=== PATIENT | female | born 1965 | race Caucasian/White ===

== ENCOUNTER 2020-03-24 08:41 | Outpatient (REF) | payer OTHER, SELFPAY ==
--- NOTE | 2020-03-24 | CT_ITS ---
EXAMINATION: CT CHEST WITH CONTRAST CLINICAL INFORMATION: Severe] Covid-19 infection. Persistent dyspnea. COMPARISON: None TECHNIQUE: Multidetector volumetric CT imaging of the chest was obtained after the administration of 50 mL of Omnipaque 350 intravenous contrast without immediate adverse reactions. Axial MIP volume rendering provided. Sagittal and coronal reformatted images were obtained. This CT examination was performed using dose optimization techniques as appropriate, variously including the following: *Automated exposure control *Adjustment of mA and/or kV according to patient size (this includes techniques or standardized protocols for targeted exams where dose is matched to indication/reason for exam; i.e. extremities or head) *Use of iterative reconstruction technique DLP: 97 mGy-cm FINDINGS: BUSINESS DIRECTOR: Unremarkable. LUNGS: The lungs are well-expanded and clear of acute pneumonic process. There are no pulmonary nodules, mass or consolidation. Minimal focal subpleural linear density likely atelectasis right lung base. MEDIASTINUM: The thyroid lobes are symmetric and normal. The central trachea and bronchi are widely patent. No abnormal size mediastinal or hilar lymph nodes seen. There is no pericardial effusion. Heart size and the great vessels are normal caliber. PLEURA: There is no pleural effusion. No pleural mass or thickening. AXILLA: No lymphadenopathy. UPPER ABDOMEN: The liver is diffusely attenuated but otherwise normal size, shape and position. No focal lesion visualized. There is no intrahepatic ductal dilatation. The gallbladder is not seen. Visualized part of the pancreas and bilateral adrenal glands are unremarkable. OSSEOUS STRUCTURES: No lytic or sclerotic process seen. IMPRESSION: 1. No acute pulmonary process seen. 2. Minimal focal atelectatic changes right lung base.
[2020-03-24] MEDS: iohexoL 350 MG/ML 100 ML INFUS..BTL IV (10:18)
== END 2020-03-24 08:42 | disposition home or self-care (01) ==
LOC: HO.CT 08:41
PROVIDERS: PCP Internal Medicine; Visit Provider Internal Medicine
DX: R06.00 Dyspnea, unspecified (principal); R53.83 Other fatigue; Z86.19 Personal history of other infectious and parasitic diseases
CPT/HCPCS: 71260

== ENCOUNTER → 2020-04-05 08:42 | Outpatient (BNVA) | payer OTHER, SELFPAY | PROVIDERS: Visit Provider Physician Assistant | DX: Z76.89 Persons encountering health services in other specified circumstances (principal) ==

== ENCOUNTER 2020-04-06 10:34 | Outpatient (REF) | payer OTHER, SELFPAY ==
[2020-04-06 12:17] LABS: Estimated Average Glucose 146 mg/dL; Hemoglobin A1c % 6.7 %
[2020-04-06 12:39] LABS: Alanine Aminotransferase 154 U/L (0-31); Albumin Level 4.5 g/dL (3.5-5.0); Alkaline Phosphatase 81 U/L (39-117); Anion Gap 13 (12-20); Aspartate Amino Transferase 84 U/L (5-31); Bilirubin Total 0.9 mg/dL (0.0-1.0); Blood Urea Nitrogen 13 mg/dL (9-16); Calcium 9.2 mg/dL (8.4-10.2); Carbon Dioxide 27 mmol/L (22-29); Chloride 104 mmol/L (96-108); Cholesterol 300 mg/dL; Estimated Glomerular Filt Rate > 60; Glucose Random 110 mg/dL (60-115); HDL Cholesterol 41 mg/dL; LDL Cholesterol Calculated 202 mg/dl; Sodium 140 mmol/L (135-145); Total Protein 7.9 g/dL (6.5-8.0); Triglycerides 285 mg/dL
[2020-04-07 08:42] LABS: HBS Num1 5.09 mIU/mL (0-7.99); HBc Num1 0.07 S/CO (0.00-0.79); HBsAGNum1 0.18 S/CO (0.00-0.99); Hepatitis B Core Antibody Nonreactive (Nonreactive); Hepatitis B Surface Antigen Negative (Negative); ~Hepatitis B Surface Antibody NONREACTIVE (Nonreactive)
[2020-04-07 09:02] LABS: ~HepC Num1 0.12 S/CO (0.00-0.79); ~Hepatitis C Antibody Nonreactive (Nonreactive)
[2020-04-08 13:57] LABS: Alpha 1 Anti-trypsin 109 mg/dL (83-199)
[2020-04-10 16:57] LABS: Mitochondrial Antibodies NEGATIVE (NEGATIVE)
[2020-04-10 18:07] LABS: Anti Nuclear Antibody Screen POSITIVE (NEGATIVE)
[2020-04-11 05:02] LABS: Hepatitis A Antibody IgM 0.19 Index (0-0.79); ~Hepatitis A Antibody IgM Nonreactive (Nonreactive)
[2020-04-11 18:17] LABS: Smooth Muscle Antibody <20 U (<20)
== END 2020-04-06 10:35 | disposition home or self-care (01) ==
LOC: HO.LAB 10:34
PROVIDERS: PCP Internal Medicine; Visit Provider Physician Assistant
DX: R74.8 Abnormal levels of other serum enzymes (principal)
CPT/HCPCS: 36415; 80053; 80061; 82103; 83036; 86038; 86039; 86255; 86256; 86704; 86706; 86709; 86803; 87340

== ENCOUNTER → 2020-04-13 10:16 | Outpatient (BNVA) | payer OTHER, SELFPAY | PROVIDERS: PCP Internal Medicine; Visit Provider Physician Assistant | DX: Z13.89 Encounter for screening for other disorder (principal) ==

== ENCOUNTER 2020-05-03 10:43 | Outpatient (REF) | payer OTHER, SELFPAY ==
[2020-05-03 12:22] LABS: Alanine Aminotransferase 153 U/L (0-31); Albumin Level 4.4 g/dL (3.5-5.0); Alkaline Phosphatase 90 U/L (39-117); Anion Gap 12 (12-20); Aspartate Amino Transferase 68 U/L (5-31); Bilirubin Total 0.6 mg/dL (0.0-1.0); Blood Urea Nitrogen 13 mg/dL (9-16); Calcium 9.1 mg/dL (8.4-10.2); Carbon Dioxide 27 mmol/L (22-29); Chloride 103 mmol/L (96-108); Estimated Glomerular Filt Rate > 60; Glucose Random 107 mg/dL (60-115); Potassium 4.2 mmol/l (3.3-5.1); Sodium 138 mmol/L (135-145); Total Protein 7.7 g/dL (6.5-8.0)
== END 2020-05-03 10:44 | disposition home or self-care (01) ==
LOC: HO.LAB 10:43
PROVIDERS: PCP Internal Medicine; Visit Provider Physician Assistant
DX: R10.11 Right upper quadrant pain (principal)
CPT/HCPCS: 80053

== ENCOUNTER → 2020-05-11 08:13 | Outpatient (BNVA) | payer OTHER, SELFPAY | PROVIDERS: PCP Internal Medicine; Referring Provider Internal Medicine; Visit Provider Physician Assistant | DX: Z76.89 Persons encountering health services in other specified circumstances (principal) ==

== ENCOUNTER 2020-05-12 08:00 | Outpatient (REF) | payer OTHER, SELFPAY | END 2020-05-12 08:01 | disposition home or self-care (01) | LOC: HO.LAB 08:00 | PROVIDERS: Physician Assistant; Visit Provider Internal Medicine | DX: A04.8 Other specified bacterial intestinal infections (principal) | CPT/HCPCS: 87338 ==

== ENCOUNTER → 2020-05-17 08:21 | Outpatient (BNVA) | payer OTHER, SELFPAY | PROVIDERS: Visit Provider Physician Assistant | DX: Z76.89 Persons encountering health services in other specified circumstances (principal) ==

== ENCOUNTER → 2020-06-06 08:14 | Outpatient (BNVA) | payer OTHER, SELFPAY | PROVIDERS: Visit Provider Nurse Practitioner Family | DX: Z76.89 Persons encountering health services in other specified circumstances (principal) ==

== ENCOUNTER 2020-06-09 12:11 | Outpatient (REF) | payer OTHER, SELFPAY ==
--- NOTE | 2020-06-09 | PFT_ITS ---
FLOWS: FEV1 of 87% of predicted at 1.95 L. FVC 80% of predicted at 2.30 L. FEV1 to FVC ratio of 0.85. No bronchodilator response. LUNG VOLUMES: Total lung capacity 109% of predicted at 4.72 L. Residual volume 134% of predicted at 2.21 L. Slow vital capacity 94% of predicted at 2.51 L. Expiratory reserve volume 29% of predicted at 0.22 L. Diffusion capacity is normal. IMPRESSION: No obstructive or restrictive ventilatory defect. Increased residual volume suggests air trapping. David Patel MD AP/MODL / [id number]
== END 2020-06-09 12:12 | disposition home or self-care (01) ==
LOC: HO.RESP 12:11
PROVIDERS: PCP Internal Medicine; Visit Provider Nurse Practitioner Primary Care
DX: R06.02 Shortness of breath (principal)
CPT/HCPCS: 94060; 94727; 94729

== ENCOUNTER → 2020-06-13 10:14 | Outpatient (BNVA) | payer OTHER, SELFPAY | PROVIDERS: PCP Internal Medicine; Visit Provider Nurse Practitioner Family | DX: Z76.89 Persons encountering health services in other specified circumstances (principal) ==

== ENCOUNTER → 2020-06-21 13:00 | Outpatient (REF) | payer OTHER, SELFPAY | LOC: HO.SL 13:00 | PROVIDERS: PCP Internal Medicine; Visit Provider Nurse Practitioner Family | DX: G47.33 Obstructive sleep apnea (adult) (pediatric) (principal); G47.19 Other hypersomnia; G47.9 Sleep disorder, unspecified; R06.83 Snoring | CPT/HCPCS: 95806 ==

== ENCOUNTER → 2020-07-03 15:55 | Outpatient (BNVA) | payer OTHER, SELFPAY | PROVIDERS: PCP Internal Medicine; Visit Provider Internal Medicine Gastroenterology | DX: Z76.89 Persons encountering health services in other specified circumstances (principal) ==

== ENCOUNTER 2020-07-05 10:47 | Outpatient (REF) | payer OTHER, SELFPAY ==
[2020-07-05 12:19] LABS: MANUAL DIFF FLAG NO
[2020-07-05 12:27] LABS: Basophils Percent Auto 0.4 % (0-2); Eosinophils Absolute Auto 0.2 X10*3/uL (0.0-0.4); Eosinophils Percent Auto 2.2 % (0-4); Hematocrit 44.4 % (37-47); Hemoglobin 14.6 g/dl (12.0-16.0); Imm Gran Abs Auto 0.03 X10*3/uL (0.00-0.03); Imm Gran Pct Auto 0.4 % (0.0-0.4); Lymphocytes Absolute Auto 2.9 X10*3/uL (1.2-4.9); Lymphocytes Percent Auto 37.8 % (20-40); Mean Corpuscular HGB Conc 32.9 g/dl (31.0-35.0); Mean Corpuscular Hemoglobin 29.3 pg (27.0-33.0); Mean Corpuscular Volume 89.2 fL (80-98); Mean Platelet Volume 9.1 fL (9.4-12.3); Monocytes Absolute Auto 0.5 X10*3/uL (0.1-1.2); Monocytes Percent Auto 6.2 % (2-11); Neutrophils Absolute Auto 4.1 X10*3/uL (2.0-8.3); Platelet Count 325 X10*3/uL (160-400); Red Blood Count 4.98 X10*6/uL (4.20-5.50); Red Cell Distribution Width 12.2 % (11.0-16.0); White Blood Count 7.6 X10*3/uL (4.8-10.8)
[2020-07-05 13:31] LABS: TSH reflex Free T4 0.83 mIU/mL (0.32-4.0)
[2020-07-05 13:34] LABS: Alanine Aminotransferase 125 U/L (0-31); Albumin Level 4.4 g/dL (3.5-5.0); Alkaline Phosphatase 105 U/L (39-117); Anion Gap 14 (12-20); Aspartate Amino Transferase 73 U/L (5-31); Bilirubin Total 0.7 mg/dL (0.0-1.0); Blood Urea Nitrogen 14 mg/dL (9-16); Calcium 9.2 mg/dL (8.4-10.2); Carbon Dioxide 27 mmol/L (22-29); Chloride 103 mmol/L (96-108); Estimated Glomerular Filt Rate > 60; Glucose Random 112 mg/dL (60-115); Sodium 140 mmol/L (135-145); Total Protein 8.1 g/dL (6.5-8.0)
[2020-07-05 14:04] LABS: Gamma Glutamyl Transpeptidase 295 U/L (7-33)
[2020-07-06 12:37] LABS: Myeloperoxidase Antibody <1.0 AI; Proteinase 3 PR3 Antibodies <1.0 AI; Transglutaminase IgA 1 U/mL
[2020-07-06 14:12] LABS: Ceruloplasmin 32 mg/dL (18-53); Immunoglobulin G 1821 mg/dL (600-1640)
[2020-07-14 06:17] LABS: Aldolase 13.6 U/L (<=8.1)
== END 2020-07-05 10:48 | disposition home or self-care (01) ==
LOC: HO.LAB 10:47
PROVIDERS: PCP Internal Medicine; Visit Provider Internal Medicine Gastroenterology
DX: R74.8 Abnormal levels of other serum enzymes (principal)
CPT/HCPCS: 36415; 80053; 82085; 82390; 82550; 82784; 82977; 83516; 84443; 85025; 86021

== ENCOUNTER → 2020-09-11 13:23 | Outpatient (BNVA) | payer OTHER, SELFPAY | PROVIDERS: PCP Internal Medicine; Visit Provider Internal Medicine | DX: R06.00 Dyspnea, unspecified (principal); G47.9 Sleep disorder, unspecified; B94.8 Sequelae of other specified infectious and parasitic diseases; Z79.51 Long term (current) use of inhaled steroids | CPT/HCPCS: 99202 ==

== ENCOUNTER → 2020-09-12 09:45 | Outpatient (BNVA) | payer OTHER, SELFPAY | PROVIDERS: Visit Provider Nurse Practitioner Family ==

== ENCOUNTER 2020-09-19 08:25 | Outpatient (REF) | payer OTHER, SELFPAY ==
[2020-09-19 09:52] LABS: MANUAL DIFF FLAG NO
[2020-09-19 09:55] LABS: Basophils Percent Auto 0.6 % (0-2); Eosinophils Absolute Auto 0.1 X10*3/uL (0.0-0.4); Eosinophils Percent Auto 1.1 % (0-4); Hematocrit 45.3 % (37-47); Hemoglobin 14.7 g/dl (12.0-16.0); Imm Gran Abs Auto 0.02 X10*3/uL (0.00-0.03); Imm Gran Pct Auto 0.3 % (0.0-0.4); Lymphocytes Absolute Auto 2.8 X10*3/uL (1.2-4.9); Lymphocytes Percent Auto 40.5 % (20-40); Mean Corpuscular HGB Conc 32.5 g/dl (31.0-35.0); Mean Corpuscular Hemoglobin 29.3 pg (27.0-33.0); Mean Corpuscular Volume 90.2 fL (80-98); Mean Platelet Volume 8.8 fL (9.4-12.3); Monocytes Absolute Auto 0.4 X10*3/uL (0.1-1.2); Monocytes Percent Auto 5.2 % (2-11); Neutrophils Absolute Auto 3.7 X10*3/uL (2.0-8.3); Neutrophils Percent Auto 52.3 % (45-73); Platelet Count 285 X10*3/uL (160-400); Red Blood Count 5.02 X10*6/uL (4.20-5.50); Red Cell Distribution Width 12.8 % (11.0-16.0)
[2020-09-19 10:05] LABS: Prothrombin Time 11.8 SEC (10.8-13.0)
[2020-09-19 10:39] LABS: Alanine Aminotransferase 162 U/L (0-31); Albumin Level 4.5 g/dL (3.5-5.0); Alkaline Phosphatase 98 U/L (39-117); Anion Gap 14 (12-20); Aspartate Amino Transferase 95 U/L (5-31); Bilirubin Total 0.9 mg/dL (0.0-1.0); Blood Urea Nitrogen 16 mg/dL (9-16); Calcium 9.5 mg/dL (8.4-10.2); Carbon Dioxide 27 mmol/L (22-29); Chloride 103 mmol/L (96-108); Estimated Glomerular Filt Rate > 60; Gamma Glutamyl Transpeptidase 220 U/L (7-33); Glucose Random 139 mg/dL (60-115); Sodium 140 mmol/L (135-145); Total Protein 8.3 g/dL (6.5-8.0)
[2020-09-20 15:27] LABS: H Pylori Breath Test NOT DETECTED (NOT DETECTED)
[2020-09-21 13:53] LABS: Immunoglobulin G 1680 mg/dL (600-1640)
[2020-09-22 07:02] LABS: Aldolase 12.9 U/L (<=8.1)
== END 2020-09-19 08:26 | disposition home or self-care (01) ==
LOC: HO.LAB 08:25
PROVIDERS: PCP Internal Medicine; Visit Provider Internal Medicine Gastroenterology
DX: K52.839 Microscopic colitis, unspecified (principal); A04.8 Other specified bacterial intestinal infections; R94.5 Abnormal results of liver function studies
CPT/HCPCS: 36415; 80053; 82085; 82784; 82977; 83013; 85025; 85610; 99212

== ENCOUNTER 2020-11-01 13:28 | Outpatient (REF) | payer OTHER, SELFPAY ==
--- NOTE | ~2020-11-01 | MR_ITS ---
EXAMINATION: MR ABDOMEN WITHOUT AND WITH CONTRAST CLINICAL INFORMATION: Abnormal liver function tests. COMPARISON: Previous abdominal ultrasound February [address] March 2020. TECHNIQUE: MR abdomen was performed without and with use of 5.5 mL intravenous Gadavist contrast. Postcontrast images are performed in multiphase dynamic sequences. Imaging was performed in 3 planes. FINDINGS: LUNG BASES: The visualized lung bases are unremarkable. LIVER, GALLBLADDER, AND BILIARY TREE: The liver is normal in size and contour. There is signal loss in the liver on [id number] sequences suggestive of significant fatty infiltration. No focal hepatic lesion or biliary ductal dilatation is present. The gallbladder is unremarkable with no evidence of gallbladder wall thickening, or obvious pericholecystic inflammatory changes. PANCREAS: Unremarkable. SPLEEN: Normal. ADRENAL GLANDS: Normal. KIDNEYS AND URETERS: The kidneys are normal in size, shape, and enhance symmetrically. No hydronephrosis. No renal mass. There is a small left renal cyst. GASTROINTESTINAL TRACT: No bowel obstruction. No ascites or fluid collection. ABDOMINAL WALL: No significant hernia is appreciated. LYMPH NODES: No lymphadenopathy. There is no ascites. VASCULAR: Unremarkable. OSSEOUS STRUCTURES: Marrow signal normal. MR/MR abdomen wo/w con IMPRESSION: Fatty infiltration of the liver. Small left renal cyst. Otherwise unremarkable exam.
== END 2020-11-01 13:29 | disposition home or self-care (01) ==
LOC: HO.MRI 13:28
PROVIDERS: Visit Provider Internal Medicine Gastroenterology
DX: R94.5 Abnormal results of liver function studies (principal)
CPT/HCPCS: 74183; A9585

== ENCOUNTER → 2020-12-05 10:26 | Outpatient (BNVA) | payer OTHER, SELFPAY | PROVIDERS: PCP Internal Medicine; Visit Provider Nurse Practitioner Family ==

== ENCOUNTER 2020-12-29 11:12 | Outpatient (REF) | payer OTHER, SELFPAY ==
[2020-12-29 12:31] LABS: Alanine Aminotransferase 66 U/L (0-31); Albumin Level 4.1 g/dL (3.5-5.0); Alkaline Phosphatase 91 U/L (39-117); Anion Gap 14 (12-20); Aspartate Amino Transferase 39 U/L (5-31); Bilirubin Total 0.8 mg/dL (0.0-1.0); Blood Urea Nitrogen 12 mg/dL (9-16); Carbon Dioxide 25 mmol/L (22-29); Chloride 107 mmol/L (96-108); Estimated Glomerular Filt Rate > 60; Glucose Random 104 mg/dL (60-115); Potassium 3.8 mmol/L (3.3-5.1); Sodium 142 mmol/L (135-145); Total Protein 7.7 g/dL (6.5-8.0)
== END 2020-12-29 11:13 | disposition home or self-care (01) ==
LOC: HO.LAB 11:12
PROVIDERS: PCP Internal Medicine; Visit Provider Internal Medicine Gastroenterology
DX: R94.5 Abnormal results of liver function studies (principal)
CPT/HCPCS: 36415; 80053

== ENCOUNTER → 2021-01-02 11:14 | Outpatient (BNVA) | payer OTHER, SELFPAY | PROVIDERS: PCP Internal Medicine; Visit Provider Internal Medicine Gastroenterology ==

== ENCOUNTER → 2021-01-30 08:34 | Outpatient (BNVA) | payer OTHER, SELFPAY | PROVIDERS: PCP Internal Medicine; Visit Provider Nurse Practitioner Family ==

== ENCOUNTER → 2021-03-19 19:45 | Outpatient (REF) | payer OTHER, SELFPAY | LOC: HO.SL 19:45 | PROVIDERS: PCP Internal Medicine; Visit Provider Nurse Practitioner Family | DX: G47.33 Obstructive sleep apnea (adult) (pediatric) (principal); G47.19 Other hypersomnia | CPT/HCPCS: 95811 ==

== ENCOUNTER → 2021-05-01 09:07 | Outpatient (BNVA) | payer OTHER, SELFPAY | PROVIDERS: PCP Internal Medicine; Referring Provider Internal Medicine; Visit Provider Nurse Practitioner Family ==

== ENCOUNTER → 2021-05-08 11:58 | Outpatient (BNVA) | payer OTHER, SELFPAY | PROVIDERS: PCP Internal Medicine; Visit Provider Internal Medicine Gastroenterology ==

== ENCOUNTER → 2021-09-04 09:40 | Outpatient (BNVA) | payer OTHER, SELFPAY | PROVIDERS: PCP Internal Medicine; Visit Provider Nurse Practitioner Family | DX: Z13.89 Encounter for screening for other disorder (principal) ==

== ENCOUNTER 2022-05-20 10:28 | Outpatient (REF) | payer OTHER, SELFPAY ==
[2022-05-20 10:48] LABS: MANUAL DIFF FLAG NO
[2022-05-20 11:30] LABS: INTERNATIONAL NORM RATIO 0.9 (0.9-1.1); Prothrombin Time 10.8 SEC (10.0-13.1)
[2022-05-20 11:52] LABS: Basophils Percent Auto 0.4 % (0-2); Eosinophils Absolute Auto 0.2 X10*3/uL (0.0-0.4); Eosinophils Percent Auto 2.3 % (0-4); Hematocrit 41.6 % (37.0-47.0); Hemoglobin 13.2 g/dl (12.0-16.0); Imm Gran Abs Auto 0.01 X10*3/uL (0.00-0.03); Imm Gran Pct Auto 0.1 % (0.0-0.4); Lymphocytes Absolute Auto 3.2 X10*3/uL (1.2-4.9); Lymphocytes Percent Auto 43.6 % (20-40); Mean Corpuscular HGB Conc 31.7 g/dl (31.0-35.0); Mean Corpuscular Hemoglobin 28.3 pg (27.0-33.0); Mean Corpuscular Volume 89.1 fL (80.0-98.0); Mean Platelet Volume 8.9 fL (9.4-12.3); Monocytes Absolute Auto 0.4 X10*3/uL (0.1-1.2); Monocytes Percent Auto 4.8 % (2-11); Neutrophils Absolute Auto 3.5 x10*3/uL (2.0-8.3); Neutrophils Percent Auto 48.8 % (45-73); Platelet Count 273 X10*3/uL (160-400); Red Blood Count 4.67 X10*6/uL (4.20-5.50); Red Cell Distribution Width 12.6 % (11.0-16.0); White Blood Count 7.3 X10*3/uL (4.8-10.8)
[2022-05-20 11:58] LABS: Alanine Aminotransferase 36 U/L (0-31); Albumin Level 4.4 g/dL (3.5-5.0); Alkaline Phosphatase 90 U/L (39-117); Anion Gap 13 (12-20); Aspartate Amino Transferase 29 U/L (5-31); Bilirubin Total 0.8 mg/dL (0.0-1.0); Blood Urea Nitrogen 16 mg/dL (9-16); Calcium 9.5 mg/dL (8.4-10.2); Carbon Dioxide 27 mmol/L (22-29); Chloride 105 mmol/L (96-108); Estimated Glomerular Filt Rate > 60; Glucose Random 100 mg/dL (60-115); Potassium 3.8 mmol/L (3.3-5.1); Sodium 141 mmol/L (135-145); Total Protein 7.6 g/dL (6.5-8.0)
[2022-05-20 12:09] LABS: Ferritin 126 ng/mL (10-250)
[2022-05-20 12:52] LABS: Folate 14.6 ng/mL (> or = 4.0); Vitamin B12 410 pg/mL (200-900)
[2022-05-25 14:22] LABS: Vitamin B1 11 nmol/L (8-30)
== END 2022-05-20 10:29 | disposition home or self-care (01) ==
LOC: HO.LAB 10:28
PROVIDERS: Visit Provider Internal Medicine Gastroenterology
DX: K75.81 Nonalcoholic steatohepatitis (NASH) (principal); R94.5 Abnormal results of liver function studies
CPT/HCPCS: 36415; 80053; 82607; 82728; 82746; 84425; 85025; 85610

== ENCOUNTER 2022-07-11 07:43 | Outpatient (REF) | payer OTHER, SELFPAY ==
--- NOTE | ~2022-07-11 | US_ITS ---
EXAMINATION: US ABDOMEN LIMITED WITH LIVER ELASTOGRAPHY CLINICAL INFORMATION: Santos. COMPARISON: None. TECHNIQUE: Real-time imaging of the abdominal viscera. Noninvasive ultrasound liver fibrosis assessment is performed using Raúl ElastPQ point quantification shear wave elastography (2D-SWE) with a C5-2 MHz transducer. Multiple elastography samples are obtained. FINDINGS: PANCREAS: Normal. The visualized pancreatic head and body are normal in appearance. The remainder of the pancreas is obscured from visualization by the overlying bowel gas. LIVER: The liver demonstrates normal size, contour and Mild Increased Echogenicity. No Focal Lesion or Intrahepatic Biliary Duct Dilatation. The Right lobe measures 12.3 cm in length. The left lobe measures 9.5 cm in length. Portal flow is hepatopedal Shear wave liver elastography median stiffness is 1.3 m/s (reference: normal median stiffness is 1.3 m/s or less). IQR/median stiffness to assess sampling precision is 0.07 (reference: good quality data set is IQR/median stiffness of 0.15 or less). GALLBLADDER: Gallbladder wall thickness measures 0.2 cm. The gallbladder is physiologically distended without evidence of stones, sludge, polyps, wall thickening or pericholecystic fluid. COMMON BILE DUCT: Normal in caliber measuring 0.4 cm in diameter. RIGHT KIDNEY: Normal. No hydronephrosis. No renal calculi or focal parenchymal lesions. The kidney measures 10.6 cm in maximum dimension. FREE FLUID: None. US/US abdomen matthew w elastography IMPRESSION: 1. Mild hepatic steatosis without focal lesion. Gallbladder, CBD and pancreas unremarkable. There is mild pelvic fullness in right kidney. 2. Liver elastography: Median liver stiffness measures 1.38 m/s. REFERENCE: Society of Radiologists in Ultrasound Liver Stiffness Thresholds (2020): LIVER STIFFNESS THRESHOLDS: *Liver Stiffness equal or less than 1.3 m/s: High probability of being normal. *Liver Stiffness less than 1.7 m/s: In the absence of other known clinical signs, rules out compensated advanced chronic liver disease. *Liver Stiffness 1.7-2.1 m/s: Suggestive of compensated advanced chronic liver disease but need further test for confirmation. *Liver Stiffness over 2.1 m/s: Rules in compensated advanced chronic liver disease. *Liver Stiffness over 2.4 m/s: Suggestive of clinically significant portal hypertension. QUALITY OF DATA SET: *IQR/Median value equal or less than 0.15 implies a quality data set. *IQR/Median value over 0.15 implies a poor quality data set. SIGNIFICANT CHANGE FROM PRIOR EXAM: Significant change if liver stiffness measurement is 10% or greater from prior exam. OTHER CONSIDERATIONS: The stage of liver fibrosis may be overestimated in the setting of acute hepatitis, liver inflammation, elevated liver function tests, hepatic vascular congestion, obstructive cholestasis, non-fasting state, and infiltrative diseases such as amyloidosis and lymphoma. In some patients with NAFLD, the liver stiffness thresholds for compensated advanced chronic liver disease may be lower. In causes other than viral hepatitis and NAFLD, liver stiffness thresholds are not well established.
== END 2022-07-11 07:44 | disposition home or self-care (01) ==
LOC: HO.US 07:43
PROVIDERS: PCP Internal Medicine; Visit Provider Internal Medicine Gastroenterology
DX: K75.81 Nonalcoholic steatohepatitis (NASH) (principal); K74.60 Unspecified cirrhosis of liver; R94.5 Abnormal results of liver function studies
CPT/HCPCS: 76705; 76981

== ENCOUNTER → 2022-07-30 13:45 | Outpatient (BNVA) | payer OTHER, SELFPAY | PROVIDERS: PCP Internal Medicine; Visit Provider Nurse Practitioner Family | DX: Z13.89 Encounter for screening for other disorder (principal) ==

== ENCOUNTER 2022-09-09 09:32 | Outpatient (REF) | payer OTHER, SELFPAY ==
[2022-09-09 11:06] LABS: MANUAL DIFF FLAG NO
[2022-09-09 12:12] LABS: Basophils Absolute Auto 0.1 X10*3/uL (0.0-0.2); Basophils Percent Auto 0.6 % (0-2); Eosinophils Absolute Auto 0.1 X10*3/uL (0.0-0.4); Eosinophils Percent Auto 1.2 % (0-4); Hematocrit 44.8 % (37.0-47.0); Hemoglobin 14.3 g/dl (12.0-16.0); Imm Gran Abs Auto 0.02 X10*3/uL (0.00-0.03); Imm Gran Pct Auto 0.3 % (0.0-0.4); Lymphocytes Absolute Auto 2.8 X10*3/uL (1.2-4.9); Mean Corpuscular HGB Conc 31.9 g/dl (31.0-35.0); Mean Corpuscular Volume 90.9 fL (80.0-98.0); Mean Platelet Volume 8.8 fL (9.4-12.3); Monocytes Absolute Auto 0.4 X10*3/uL (0.1-1.2); Monocytes Percent Auto 5.4 % (2-11); Neutrophils Absolute Auto 4.4 x10*3/uL (2.0-8.3); Neutrophils Percent Auto 56.5 % (45-73); Platelet Count 316 X10*3/uL (160-400); Red Blood Count 4.93 X10*6/uL (4.20-5.50); Red Cell Distribution Width 12.7 % (11.0-16.0); White Blood Count 7.7 X10*3/uL (4.8-10.8)
[2022-09-09 12:58] LABS: Alanine Aminotransferase 35 U/L (0-31); Albumin Level 4.5 g/dL (3.5-5.0); Alkaline Phosphatase 78 U/L (39-117); Anion Gap 12 (12-20); Aspartate Amino Transferase 25 U/L (5-31); Bilirubin Total 0.6 mg/dL (0.0-1.0); Blood Urea Nitrogen 18 mg/dL (9-16); Calcium 9.2 mg/dL (8.4-10.2); Carbon Dioxide 28 mmol/L (22-29); Chloride 105 mmol/L (96-108); Estimated Glomerular Filt Rate > 60; Glucose Random 175 mg/dL (60-115); Potassium 4.1 mmol/L (3.3-5.1); Sodium 141 mmol/L (135-145); Total Protein 7.7 g/dL (6.5-8.0)
== END 2022-09-09 09:33 | disposition home or self-care (01) ==
LOC: HO.LAB 09:32
PROVIDERS: Visit Provider Internal Medicine Gastroenterology
DX: K75.81 Nonalcoholic steatohepatitis (NASH) (principal); R94.5 Abnormal results of liver function studies; R74.8 Abnormal levels of other serum enzymes
CPT/HCPCS: 36415; 80053; 85025

== ENCOUNTER → 2022-11-28 08:28 | Outpatient (BNVA) | payer OTHER, SELFPAY | PROVIDERS: Visit Provider Nurse Practitioner Family ==

== ENCOUNTER 2023-01-02 08:23 | Outpatient (REF) | payer OTHER, SELFPAY ==
--- NOTE | ~2023-01-02 | MM_ITS ---
EXAMINATION: MM SCREENING DIGITAL BREAST TOMOSYNTHESIS, BILATERAL CLINICAL INFORMATION: Screening. Asymptomatic. The lifetime risk of breast cancer based on the Tyrer-Cuzick Model is 9.1%. COMPARISON: Mammography: This study is compared with prior exams dating back to 2017. TECHNIQUE: Digital breast tomosynthesis is performed in both the craniocaudal and mediolateral oblique views along with computer-aided detection (CAD). Synthesized 2D images are generated from the tomosynthesis. FINDINGS: There are scattered areas of fibroglandular density (ACR BI-RADS breast composition Category b). There are no significant masses, abnormal calcifications, or other abnormalities. MM/MM tomosynthesis screening BI IMPRESSION: No mammographic evidence of malignancy. ASSESSMENT: BI-RADS BI-RADS 1 - Negative RECOMMENDATION: Routine annual mammography screening. 1 year F/U This examination should not preclude the clinical evaluation of a suspicious palpable abnormality. This patient's information was entered into a reminder system with a target due date for their next mammogram.
== END 2023-01-02 08:24 | disposition home or self-care (01) ==
LOC: HO.MAMMO 08:23
PROVIDERS: Visit Provider Registered Nurse
DX: Z12.31 Encounter for screening mammogram for malignant neoplasm of breast (principal)
CPT/HCPCS: 77063; 77067

== ENCOUNTER → 2023-01-02 09:00 | Outpatient (BNV) | payer OTHER, SELFPAY | PROVIDERS: Visit Provider Radiology Diagnostic Radiology | DX: Z12.31 Encounter for screening mammogram for malignant neoplasm of breast (principal) | CPT/HCPCS: 77063; 77067 ==

== ENCOUNTER 2023-03-14 18:22 | Outpatient (REF) | payer OTHER, SELFPAY ==
[2023-03-17 17:33] LABS: C. trachomatis RNA TMA NOT DETECTED (NOT DETECTED); N. gonorrhoeae RNA TMA NOT DETECTED (NOT DETECTED)
[2023-03-18 21:08] LABS: HPV mRNA E6/E7 rflx Not Detected (Not Detected)
== END 2023-03-14 18:23 | disposition home or self-care (01) ==
LOC: HO.LNP 18:22
PROVIDERS: Visit Provider Registered Nurse
DX: Z12.4 Encounter for screening for malignant neoplasm of cervix (principal); N95.9 Unspecified menopausal and perimenopausal disorder
CPT/HCPCS: 0353U; 87491; 87591; 87624; 88142

== ENCOUNTER 2023-06-26 10:59 | Outpatient (REF) | payer OTHER, SELFPAY | END 2023-06-26 11:00 | disposition home or self-care (01) | LOC: HO.HHCX 10:59 | PROVIDERS: Visit Provider Family Medicine | DX: J06.9 Acute upper respiratory infection, unspecified (principal) | CPT/HCPCS: 71046 ==

== ENCOUNTER 2023-11-25 08:08 | Outpatient (REF) | payer OTHER, SELFPAY ==
[2023-11-25 12:34] LABS: Estimated Average Glucose 128 mg/dL; Hemoglobin A1c % 6.1 % (<6.0)
[2023-11-25 12:41] LABS: Alanine Aminotransferase 50 U/L (0-31); Albumin Level 4.1 g/dL (3.5-5.0); Alkaline Phosphatase 88 U/L (39-117); Anion Gap 11 (12-20); Aspartate Amino Transferase 36 U/L (5-31); Bilirubin Direct 0.2 mg/dL (0.0-0.5); Bilirubin Total 0.5 mg/dL (0.0-1.0); Blood Urea Nitrogen 14 mg/dL (9-16); Calcium 9.4 mg/dL (8.4-10.2); Carbon Dioxide 25 mmol/L (22-29); Chloride 107 mmol/L (96-108); Cholesterol 192 mg/dL (<200); Estimated Glomerular Filt Rate > 60; Glucose Random 96 mg/dL (60-115); HDL Cholesterol 42 mg/dL (>40); LDL Cholesterol Calculated 117 mg/dL (<100); Potassium 4.2 mmol/L (3.3-5.1); Sodium 139 mmol/L (135-145); Total Protein 7.6 g/dL (6.5-8.0); Triglycerides 166 mg/dL (<150)
== END 2023-11-25 08:09 | disposition home or self-care (01) ==
LOC: HO.HHCL 08:08
PROVIDERS: Visit Provider Registered Nurse
DX: E66.3 Overweight (principal); K76.0 Fatty (change of) liver, not elsewhere classified; R73.03 Prediabetes
CPT/HCPCS: 36415; 80048; 80061; 80076; 83036

== ENCOUNTER 2023-12-04 08:13 | Outpatient (REF) | payer OTHER, SELFPAY ==
[2023-12-04 12:42] LABS: HBS Num1 2.33 mIU/mL (0-7.99); HBsAGNum1 0.23 S/CO (0.00-0.99); Hepatitis A Antibody IgM 0.14 Index (0-0.79); Hepatitis B Core Antibody Nonreactive (Nonreactive); Hepatitis B Surface Antigen Negative (Negative); ~Hepatitis A Antibody IgM Nonreactive (Nonreactive); ~Hepatitis B Surface Antibody NONREACTIVE (Nonreactive); ~Hepatitis C Antibody Nonreactive (Nonreactive)
== END 2023-12-04 08:14 | disposition home or self-care (01) ==
LOC: HO.HHCL 08:13
PROVIDERS: Visit Provider Registered Nurse
DX: K76.0 Fatty (change of) liver, not elsewhere classified (principal)
CPT/HCPCS: 36415; 86704; 86706; 86709; 86803; 87340

== ENCOUNTER 2024-01-08 08:08 | Outpatient (REF) | payer OTHER, SELFPAY | END 2024-01-08 08:09 | disposition home or self-care (01) | LOC: HO.MAMMO 08:08 | PROVIDERS: PCP Registered Nurse; Visit Provider Registered Nurse | DX: Z12.31 Encounter for screening mammogram for malignant neoplasm of breast (principal) | CPT/HCPCS: 77063; 77067 ==

== ENCOUNTER → 2024-01-08 08:30 | Outpatient (BNV) | payer OTHER, SELFPAY | PROVIDERS: PCP Registered Nurse; Visit Provider Radiology Diagnostic Radiology | DX: Z12.31 Encounter for screening mammogram for malignant neoplasm of breast (principal) | CPT/HCPCS: 77063; 77067 ==

== ENCOUNTER 2024-11-26 10:31 | Outpatient (REF) | payer SELFPAY ==
--- OUTSIDE RECORDS SUMMARY | 2024-11-26 11:19 | XMS_ITS | Encounter Summary ---
Author Organization [employer] Address [address] [place] [address] [address] [place] [address] Care Team Providers Care Medical Receptionist Name Role Phone [place] Kristi [facility] Primary Care Provider [phone] Reason for Visit * Reason Onset Date Comments Chart prep 11/25/2024 Encounter Details Date Type Department Care Team ([facility] st Contact Info) Description 11/25/2024 Telephone [facility] [address] [place] [address] [place] [facility] [address] [place] [address] Chart prep Social History Tobacco Use Types Packs/Day Years Used Date Smoking Tobacco: Never Passive Smoke Exposure: Never Smokeless Tobacco: Never Alcohol Use Standard Drinks/Week Comments Never 0 (1 standard drink = 0.6 oz pur e alcohol) Depression Answer Date Recorded Patient Health Questionnaire-9 Score 0 03/14/2023 Housing Stability Answer Date Recorded What is your housing situation today? I have maren yo 11/26/[address] you li ve. Do you have problems with any of the following? None of the above 11/26/2024 Food Insecurity Answer Date Recorded Within the past 12 months, y ou worried that your food would run out before you got money to buy more: Never True 11/26/2024 Within the past 12 months,th e food you bought just didn't last and you didn't have enough money to get more: Never True 11/2024 Transportation Answer Date Recorded In the past 12 months, has l ack of transportation kept you from medical appts, meetings, work or from getting things needed for daily living? No 11/26/2024 Utilities Answer Date Recorded In the past 12 months, has t he electric, gas, oil or water company threatened to shut off services in your home? No 11/26/2024 Depression Answer Date Recorded Patient Health Questionnaire-2 Score 0 11/26/2024 Internet Access Answer Date Recorded Internet Access Q1 No 11/26/2024 Internet Access Q2 I do not want or need it 11/2024 Comments Unknown Sex and Gender Information Value Date Recorded Sex Assigned at Female 04/22/2022 10:29 AM EDT Legal Sex Female 10:29 AM EDT Gender Identity Female 04/22/2022 10:29 AM EDT Sexual Orientation Choose not to disclose 2021 10:29 AM EDT documented as of this encounter Miscellaneous Notes * Telephone Encounter - Dixie Gracia MA - 11/25/2024 1:40 PM EDT Chart Prep Labs: done Images: done Referrals: complete Vaccines due: Covid, PCV20, Hep B, Hep A, and Zoster Screenings: foot exam Overdue care gaps: A1c, Glucose, SDOH, PHQ-9, JOSE-7, and Disability screen Patient Pre DM. Per [facility] A1C due, consult with Provider. documented in this encounter Plan of Treatment Not on file documented as of this encounter Visit Diagnoses Not on filedocumented in this encounter Additional Health Concerns Assessment Noted Time PHQ-9 Depression Total Score: 0 03/14/20 23 1:58 PM EDT documented as of this encounter Care Teams Medical Receptionist Relationship Specialty Start Date End Date Kristi Gilbert FNP [address] [place] [id number] PCP - General Family Medicine 05/14/22 documented as of this encounter
[2024-11-26 13:59] LABS: Estimated Average Glucose 117 mg/dL; Hemoglobin A1c % 5.7 % (<6.0)
[2024-11-26 14:16] LABS: Creatinine Urine 65.04 mg/dL; Microalbumin Urine < 5.0 mg/L
[2024-11-26 14:38] LABS: Alanine Aminotransferase 37 U/L (0-31); Albumin Level 4.4 g/dL (3.5-5.0); Alkaline Phosphatase 76 U/L (39-117); Anion Gap 8 (12-20); Aspartate Amino Transferase 41 U/L (5-31); Bilirubin Total 0.8 mg/dL (0.0-1.0); Blood Urea Nitrogen 15 mg/dL (9-16); Calcium 9.7 mg/dL (8.4-10.2); Carbon Dioxide 30 mmol/L (22-29); Chloride 106 mmol/L (96-108); Cholesterol 196 mg/dL (<200); Estimated Glomerular Filt Rate > 60; Glucose Random 91 mg/dL (60-115); HDL Cholesterol 46 mg/dL (>40); LDL Cholesterol Calculated 121 mg/dL (<100); Potassium 4.1 mmol/L (3.3-5.1); Sodium 140 mmol/L (135-145); Total Protein 7.7 g/dL (6.5-8.0); Triglycerides 145 mg/dL (<150)
[2024-11-27 04:24] LABS: HIV AB/AG Nonreactive (Nonreactive); HIV Num 1 0.06 S/CO (0.00-0.99)
== END 2024-11-26 10:32 | disposition home or self-care (01) ==
LOC: HO.HHCL 10:31
PROVIDERS: Visit Provider Registered Nurse
DX: Z00.00 Encounter for general adult medical examination without abnormal findings (principal); R73.03 Prediabetes; Z13.6 Encounter for screening for cardiovascular disorders
CPT/HCPCS: 36415; 80053; 80061; 82043; 82570; 83036; 87389

== ENCOUNTER 2024-12-16 10:08 | Outpatient (REF) | payer OTHER, SELFPAY ==
--- NOTE | ~2024-12-16 | US_ITS ---
EXAMINATION: US ABDOMEN HISTORY: chronic mild liver enzyme elevation, hx of fatty liver TECHNIQUE: Real-time grayscale ultrasound imaging of the abdomen was performed and images were reviewed. COMPARISON: Comparison is made with the prior examination dated 07/11/2022. FINDINGS: Liver: The liver is normal in size. The liver demonstrates increased echotexture, consistent with steatosis. No focal mass or intrahepatic biliary ductal dilatation is identified. There is normal hepatopedal flow in the portal vein. Gallbladder and biliary tree: The gallbladder is unremarkable, without evidence of calculi, wall thickening, or pericholecystic fluid. There is no sonographic Briones sign. The common bile duct is normal in caliber measuring 5 mm. Kidneys: The right kidney measures 10.2 cm in length. The left kidney measures 11.5 cm in length. The kidneys are unremarkable, without evidence of masses, hydronephrosis, or calculi. Pancreas: The pancreatic head, neck, and body are unremarkable. The pancreatic tail is obscured by bowel gas. Spleen: The spleen is normal in size and contour, measuring 8.7 cm in length. Abdominal aorta and inferior vena cava: The visualized portions of the abdominal aorta and inferior vena cava are normal in caliber. There is no free fluid in the abdomen. US/US abdomen complete IMPRESSION: Hepatic steatosis. Otherwise unremarkable abdominal ultrasound. Electronically signed by: Jonathan Wick MD 12/16/2024 11:15 AM EDT
--- OUTSIDE RECORDS SUMMARY | 2024-12-16 11:40 | XMS_ITS | Clinical Summary ---
Author Organization [employer] Address [address] [place] [address] [address] [place] [address] Care Team Providers Care Infrastructure Solutions Architect Name Role Phone Kristi Gilbert RPG DEVELOPER Primary Care Provider [phone] Allergies No known active allergies Medications rosuvastatin (Crestor) 40 MG tablet TAKE 1 TABLET BY MOUTH DAILY 90 tablet 1 04/16/20 23 Active Alcohol Swabs (Alcohol Prep) padsIndication s:Prediabetes, Shaking Use one pad each to prep skin prior to injection as directed 100 each 11 11/24/19 24 Active Lancets 33G miscIndication s:Prediabetes, Shaking Use as directed to check blood sugar four times daily 100 each 3 11/24/19 24 Active Blood Glucose Monitoring Suppl (GNP Easy Touch Glucose Meter) deviceIndicati ons:Prediabete s,Shaking Use as directed to check blood sugar four times daily 1 each 11/24/19 24 Active glucose blood test stripIndicatio ns:Prediabetes ,Shaking Use as directed to check blood sugar four times daily 100 each 12 11/24/19 24 Active atorvastatin (Lipitor) 80 MG tabletIndicati ons:Steatosis of liver TAKE 1 TABLET BY MOUTH EVERY DAY 90 tablet 3 04/27/20 24 Active metFORMIN XR (Glucophage-XR ) 500 MG 24 hr tablet TAKE 1 TABLET BY MOUTH TWICE DAILY 180 tablet 1 09/21/19 25 Active traMADol (Ultram) 50 MG tabletIndicati ons:Other chronic pain Take 1 tablet (50 mg) by mouth every 12 (twelve) hours if needed for severe pain. 15 tablet 11/20/19 23 025 Discontinued Active Problems Problem Noted Date Diagnosed Date Viral upper respiratory tract infection 08/16/19 25 Assessment & Plan (08/16/2024 9:51 AM EST): I advised to drink plenty of fluids and rest Acetaminophen as needed Cough syrup as needed Note for work will be provided Prediabetes 11/24/2023 Healthcare maintenance 11/24/2023 Overview (11/24/2023): Mammo: 12/2022-birads 1 Pap: 02/2023 NIL HPV neg-->repeat 02/2028 BMD: Routine age 65 Chronic pain syndrome 11/25/2022 Overview (11/24/2023): S/t severe COVID PRN tramadol Hx of severe COVID x 2 year. ICU x 5 days. Since this time has experienced generalized weakness and widespread chronic pain worse after physical activity. Occasional tramadol for pain mngmt Assessment & Plan (11/25/2022 8:58 AM EDT): Patient using tramadol 3-5x/month for severe pain Will refer for LICENSED SURVEYOR contract Steatosis of liver 11/19/2022 Encounters Date Type Department Care Team Description 12/08/2024 Results Follow-Up [facility] [address] [place] [phone] Kristi Gilbert FNP Albumin, Random Urine W/Creatinine, Lipid Panel, Standard, HIV-1/2 Antigen and Antibodies, Fourth Generation, with Reflexes, Additional followed-up results: 2 11/26/2024 9:30 AM EDT Office Visit [facility] [address] [place] [phone] Kristi Gilbert FNP Healthcare maintenance (Primary Dx); Prediabetes; Encounter for immunization 11/26/2024 Travel 11/25/2024 Telephone [facility] [address] [place] [phone] Kristi Gilbert FNP Chart prep 11/17/2024 Patient Outreach [facility] [address] [place] [phone] Kristi Gilbert FNP Pre-visit Planning ((Unable to reach for PVP screening, LVM)) 09/20/2024 Refill [facility] [address] [facility] [place] [address] Joan Gardner MD 09/20/2024 Refill [facility] [address] [facility] [place] [address] Joan Gardner MD from Last 3 Months Immunizations Immunization Administration Dates Next Due Hep B, adult 11/26/2024 Influenza Injectable Quadriv alant Preservative Free IIV4 MDCK 04/07/2021,05/12/2020 Influenza injectable quadrivalent preservative f ree 03/14/2023 Pneumococcal Conjugate PCV 20 11/26/2024 Tdap 07/03/2015 Zoster, Recombinant 08/11/2019 Family History Medical History Relation Name Comments Breast cancer Mother's Sister Relation Name Status Comments Mother's Sister Social History Tobacco Use Types Packs/Day Years Used Date Smoking Tobacco: Never Passive Smoke Exposure: Never Smokeless Tobacco: Never Tobacco Cessation:Counseling Given: Not Answered Alcohol Use Standard Drinks/Week Comments Never 0 (1 standard drink = 0.6 oz pur e alcohol) Depression Answer Date Recorded Patient Health Questionnaire-9 Score 0 03/14/2023 Housing Stability Answer Date Recorded What is your housing situation today? I have marenbear yo 11/26/[address] you [...] not to disclose 2021 10:29 AM EDT Last Filed Vital Signs Vital Sign Reading Time Taken Comments Blood Pressure 110/80 11/26/2024 9:44 AM EDT Pulse 68 11/26/2024 9:00 AM EDT Temperature 36.1 C (97 F) 11/26/2024 9:00 AM EDT Respiratory Rate 16 11/26/2024 9:00 AM EDT Oxygen Saturation 99% 08/16/2024 9:08 AM EST Inhaled Oxygen Concentration - - Weight 54.1 kg (119 lb 6 oz) 11/26/2024 9:00 AM EDT Height 149.9 cm (4' 11 ) 11/26/2024 9:00 AM EDT Body Mass Index 24.11 11/26/2024 9:00 AM EDT Plan of Treatment Health Maintenance Due Date Last Done Comments CT Colonography 1965 Colonoscopy 1965 FIT 1965 FOBT 1965 Sigmoidoscopy 1965 Diabetes: Foot Exam 1975 Alcohol/Substance Use Screening 1977 Hepatitis A Vaccines (1 of 2 - Risk 2-dose series) 1984 Zoster Vaccines (2 of 2) 10/06/2019 08/11/2019 COVID-19 Vaccine ( season) 2024 05/05/2021, 07/12/2020, 06/21/2020 Hepatitis B Vaccines (2 of 3 - 19+ 3-dose series) 12/24/2024 11/26/2024 Mammogram 01/07/2025 01/08/2024, 12/21, 10/24/2017, Additional history exists Influenza Vaccine (Season Ended) 2025 03/14/2023, 04/07/2021, 05/12/2020 Diabetes: Hemoglobin A1C 05/28/2025 025, 11/25/2023, 04/26/2022, Additional history exists DTaP/Tdap/Td Vaccines (2 - Td or Tdap) 07/03/2025 07/03/2015 Depression Screening 11/26/2025 11/26/2024, 03/14/20 23 Diabetes: Urine Protein Screening 11/26/2025 11/26/2024 Disability Screening 11/26/2025 11/26/2024 Lipid Panel 11/26/2025 11/26/2024, 09/2023, 04/26/2022, Additional history exists SDOH Screening 11/26/2025 11/26/2024 Tobacco Screening 12/01/2025 12/01/2024 Colorectal Cancer Screening 12/18/2025 FIT DNA/Cologuard 12/18/2025 12/18/2022, 12/10/2022 Eye Exam 07/22/2026 07/22/2024, 06/25, 07/22/2024, Additional history exists Cervical Cancer Screening 03/14/2028 HPV/Cotest 03/14/2028 03/14/2023 Pap Smear 03/14/2028 03/14/2023 RSV Patients and Patients Aged 60 years or older (1 - 1-dose 75+ series) 2040 Hepatitis C Screening Completed 12/04/2023 , 04/06/2020, 12/30/2019 HIV Screening Completed 11/26/2024 Pneumococcal Vaccine: 50+ Years Completed 11/26/2024 HIB Vaccines Aged Out No longer eligi ble based on patient's age to complete this topic HPV Vaccines Aged Out No longer eligi ble based on patient's age to complete this topic IPV Vaccines Aged Out No longer eligi ble based on patient's age to complete this topic Meningococcal B Vaccine Aged Out No l onger eligible based on patient's age to complete this topic Meningococcal Vaccine Aged Out No shari blanka eligible based on patient's age to complete this topic RSV under 20 months Aged Out No longe r eligible based on patient's age to complete this topic Rotavirus Vaccines Aged Out No longer eligible based on patient's age to complete this topic Procedures Procedure Name Priority Date/Time Associated Diagnosis Comments US ABDOMEN COMPLETE Routine 12/16/2024 1 0:24 AM EDT Steatosis of liver HEMOGLOBIN A1C Routine 11/26/2024 10:34 AM EDT Prediabetes COMPREHENSIVE METABOLIC PANEL Routine 11/26/2024 10:34 AM EDT Prediabetes HIV 1/2 ANTIGEN/ANTIBODY, FOURTH GENERATION W/RFL Routine 11/26/2024 10:34 AM EDT Healthcare maintenance LIPID PANEL, STANDARD Routine 11/26/2024 10:34 AM EDT Prediabetes ALBUMIN, RANDOM URINE W/CREATININE Routine 11/26/2024 10:34 AM EDT Prediabetes BI MAMMOGRAM SCREENING TOMOSYNTHESIS BILATERAL Routine 01/08/2024 8:36 AM EDT HEPATITIS PANEL, GENERAL Routine 12/04/2023 8:15 AM EDT Steatosis of liver HPV MRNA E6/E7 REFLEX TO HPV 16, 18/45 Routine 03/14/2023 2:38 PM EDT PAP SMEAR Routine 03/14/2023 2:38 PM EDT LAB COLOGUARD COLON CANCER SCREEN Routine 12/18/2022 from Last 3 Months or Most Recently Relevant to Health Maintenance Results * US Abdomen Complete (12/16/2024 10:24 AM EDT) Anatomical Region Laterality Modality Abdomen Ultrasound 12/16/2024 10:2 4 AM EDT Narrative 12/16/2024 11:18 AM EDT [address] [address] Ultrasound Report Signed Patient: Staci Cohen MR#: [id number] 12 : 1965 Acct:[id number] Age/Sex: 59 / F ADM Date: 12/16/24 Loc: HO.US Attending Dr: Kristi ENCISO Ordering Physician: Kristi Gilbert Date of Service: 12/16/24 Procedure(s): US abdomen complete Accession Number(s): [id number] cc: Kristi Gilbert [facility] EXAMINATION: US ABDOMEN HISTORY: chronic mild liver enzyme elevation, hx of fatty liver TECHNIQUE: Real-time grayscale ultrasound imaging of the abdomen was performed and images were reviewed. COMPARISON: Comparison is made with the prior examination dated 07/11/2022. FINDINGS: Liver: The liver is normal in size. The liver demonstrates increased echotexture, consistent with steatosis. No focal mass or intrahepatic biliary ductal dilatation is identified. There is normal hepatopedal flow in the portal vein. Gallbladder and biliary tree: The gallbladder is unremarkable, without evidence of calculi, wall thickening, or pericholecystic fluid. There is no sonographic Briones sign. The common bile duct is normal in caliber measuring 5 mm. Kidneys: The right kidney measures 10.2 cm in length. The left kidney measures 11.5 cm in length. The kidneys are unremarkable, without evidence of masses, hydronephrosis, or calculi. Pancreas: The pancreatic head, neck, and body are unremarkable. The pancreatic tail is obscured by bowel gas. Spleen: The spleen is normal in size and contour, measuring 8.7 cm in length. Abdominal aorta and inferior vena cava: The visualized portions of the abdominal aorta and inferior vena cava are normal in caliber. There is no free fluid in the abdomen. US/US abdomen complete IMPRESSION: Hepatic steatosis. Otherwise unremarkable abdominal ultrasound. Electronically signed by: Jonathan Wick MD 12/16/2024 11:15 AM EDT Dictated By: Jonathan Wick MD Signed By: <Electronically signed by Jonathan Wick MD in OV> 12/16/24 1115 DD/ 1024 TD/TT: 12/16/24 1039 Stitch Bonding Machine Drawer In: Procedure Note Donotuseinterpreter, Image - 12/16/[address] [address] Ultrasound Report Signed Patient: Albert Cohen#: [id number] 12 : 1965Acct:[id number] Age/Sex: 59 / FADM Date: 12/16/24 Loc: .US Attending Dr: Kristi PADRONP Ordering Physician: Kristi Gilbert Date of Service: 12/16/24 Procedure(s): US abdomen complete Accession Number(s): [id number] cc: Kristi Gilbert [facility] EXAMINATION: US ABDOMEN HISTORY: chronic mild liver enzyme elevation, hx of fatty liver TECHNIQUE: Real-time grayscale ultrasound imaging of the abdomen was performed and images were reviewed. COMPARISON: Comparison is made with the prior examination dated 07/11/2022. FINDINGS: Liver: The liver is normal in size. The liver demonstrates increased echotexture, consistent with steatosis. No focal mass or intrahepatic biliary ductal dilatation is identified. There is normal hepatopedal flow in the portal vein. Gallbladder and biliary tree: The gallbladder is unremarkable, without evidence of calculi, wall thickening, or pericholecystic fluid. There is no sonographic Briones sign. The common bile duct is normal in caliber measuring 5 mm. Kidneys: The right kidney measures 10.2 cm in length. The left kidney measures 11.5 cm in length. The kidneys are unremarkable, without evidence of masses, hydronephrosis, or calculi. Pancreas: The pancreatic head, neck, and body are unremarkable. The pancreatic tail is obscured by bowel gas. Spleen: The spleen is normal in size and contour, measuring 8.7 cm in length. Abdominal aorta and inferior vena cava: The visualized portions of the abdominal aorta and inferior vena cava are normal in caliber. There is no free fluid in the abdomen. US/US abdomen complete IMPRESSION: Hepatic steatosis. Otherwise unremarkable abdominal ultrasound. Electronically signed by: Jonathan Wick MD 12/16/2024 11:15 AM EDT Dictated By: Jonathan Wick MD Signed By: <Electronically signed by Jonathan Wick MD in OV> 12/16/24 1115 DD/ 1024 TD/TT: 12/16/24 1039 Stitch Bonding Machine Drawer In: [facility] IMG US PROCEDURES Final Resul t * Albumin, Random Urine W/Creatinine (11/26/2024 10:34 AM EDT) Creatinine, Urine 65.04 mg/dL [facility] Microalbumin Urine <5.0 mg/L [facility] Microalbum Creatinine Ratio Ur TNP <30 ug/mg cr [facility] Comment:Unable to calculate albumin/creatinine ratio due to lowmicroalbumin or creatinine result. Urine 11/26/2024 10:3 4 AM EDT 11/26/2024 1:08 PM EDT [facility] LAB URINE ORDERABLES Final Re sult [facility] [address] [place] [address] [phone] * HIV-1/2 Antigen and Antibodies, Fourth Generation, with Reflexes (11/26/2024 10:34 AM EDT) HIV AB/AG Nonreactive Nonreactive [facility] Comment:HIV-1 p24 Ag and/or HIV-1/HIV-2 Ab not detected.A test result that is nonreactive does not exclude thepossibility of exposure to or infection with HIV-1 and/orHIV-2. Nonreactive results in this assay for individualswith prior exposure to HIV-1 and/or HIV-2 may be due toantigen and antibody levels that are below the limit ofdetection of this assay.The [employer] HIV Ag/Ab Combo assay result andsupplemental assay results should be interpreted inconjunction with the patient's clinical presentation,history and other laboratory results. If the results areinconsistent with clinical evidence, additional testing issuggested to confirm the result. Blood Venous blood specimen / Unknown 11/26/2024 10:34 AM EDT 11/26/2024 1:17 PM EDT [facility] LAB BLOOD ORDERABLES Final Re sult [facility] [address] [place] [phone] * Hemoglobin A1c (11/26/2024 10:34 AM EDT) Hemoglobin A1c 5.7 <6.0 % [facility] Comment:Hemoglobin A1C Refer ence Range Adults: 4.8 - 6.0 % Non diabetic: < 6.0 % Goal: < 7.0 %Additional Action Suggested: > 8.0 %Note: Hemoglobin A1c results are invalid for patients with abnormal amounts of HbF. Blood transfusions may impact the HbA1c concentration in the patient sample. Estimated Average Glucose 117 mg/dL [facility] Comment:eAG = Estimated ave rage glucose which is %A1C expressed asaverage glucose, using the formula of the [id number] Glucose study (ADAG), Diabetes Care, Vol.31,#8,Jan. 2007 Blood Venous blood specimen / Unknown 11/26/2024 10:34 AM EDT 11/26/2024 1:17 PM EDT [facility] [employer] LAB BLOOD ORDERABLES Final Re sult [facility] [address] [place] [phone] * (ABNORMAL) Lipid Panel, Standard (11/26/2024 10:34 AM EDT) Triglycerides 145 <150 mg/dL [facility] Comment:Desirable Triglyceri de: less than 150 mg/dLBorderline High Triglyceride 150-199 mg/dLHigh Triglyceride: 200-499 mg/dLVery High Triglyceride: greater than or equal to 5OO mg/dL Cholesterol 196 <200 mg/dL [facility] Comment:Desirable Cholestero l: less than 200 mg/dLBorderline High Cholesterol: 200-239 mg/dLHigh Cholesterol: greater than 239 mg/dL LDL Cholesterol Calculated 121(H) <100 mg/dL [facility] Comment:Desirable LDL: less than 100 mg/dLNear Optimal/Above Optimal LDL: 110- 129 mg/dLBorderline High LDL: 130-159 mg/dLHigh LDL: 160-189 mg/dLVery High LDL: greater than or equal to 190 mg/dL HDL Cholesterol 46 >40 mg/dL [facility] Comment:Desirable HDL: great er than 40 mg/dL Note: This HDL assay may give artificially low results in patients with liver disease. Blood Venous blood specimen / Unknown 11/26/2024 10:34 AM EDT 11/26/2024 1:17 PM EDT [facility] [employer] LAB BLOOD ORDERABLES Final Re sult [facility] [address] [place] [address] [phone] * (ABNORMAL) Comprehensive Metabolic Panel (11/26/2024 10:34 AM EDT) Sodium 140 135 - 145 mmol/L [facility] Potassium 4.1 3.3 - 5.1 mmol/L [facility] Chloride 106 96 - 108 mmol/L [facility] Carbon Dioxide 30(H) 22 - 29 mmol/L [facility] Anion Gap 8(L) 12 - 20 [facility] Urea Nitrogen (BUN) 15 9 - 16 mg/dL [facility] Creatinine, Serum 0.68 0.5 - 1.4 mg/dL [facility] Estimated Glomerular Filt Rate >60 [facility] Comment:Chronic Kidney Disea se: Estimated GFR < 60 mL/min/1.10j0Eivkfp Kidney Disease: Estimated GFR < 15 mL/min/1.73m2 Glucose 91 60 - 115 mg/dL [facility] Calcium 9.7 8.4 - 10.2 mg/dL [facility] Bilirubin, Total 0.8 0.0 - 1.0 mg/dL [facility] Aspartate Amino Transferase 41(H) 5 - 31 U/L [facility] Alanine Aminotransferase 37(H) 0 - 31 U/L [facility] Total Protein 7.7 6.5 - 8.0 g/dL [facility] Albumin Level 4.4 3.5 - 5.0 g/dL [facility] Alkaline Phosphatase 76 39 - 117 U/L [facility] Blood Venous blood specimen / Unknown 11/26/2024 10:34 AM EDT 11/26/2024 1:17 PM EDT [facility] [employer] LAB BLOOD ORDERABLES Final Re sult [facility] [address] [place] [phone] [phone] * BI Mammogram Screening Tomosynthesis Bilateral (01/08/2024 8:36 AM EDT) Anatomical Region Laterality Modality Breast Bilateral Mammography 01/08/2024 8:36 AM EDT Narrative 02/03/2024 2:03 PM EDT [facility] [address] [place] [address] Mammography Report Signed Patient: Staci Cohen MR#: [id number] [birth year] : 1965 Acct:[id number] Age/Sex: 58 / F ADM Date: 01/08/24 Loc: MAMMO Attending Dr: Kristi Gilbert RPG DEVELOPER Ordering Physician: Kristi Gilbert RPG DEVELOPER Results: 1Nega tive Date of Service: 01/08/24 Follow Up: 1 Year From [facility] Mammogram Procedure(s): MM tomosynthesis screening BI Accession Number(s): [id number] cc: Kristi Gilbert [facility] EXAMINATION: MM SCREENING DIGITAL BREAST TOMOSYNTHESIS, BILATERAL CLINICAL INFORMATION: Screening. Asymptomatic. COMPARISON: Mammography: This study is compared with prior exams dating back to 2018. TECHNIQUE: Digital breast tomosynthesis is performed in both the craniocaudal and mediolateral oblique views along with computer-aided detection (CAD). Synthesized 2D images are generated from the tomosynthesis. FINDINGS: The breasts are heterogeneously dense, which may obscure small masses (ACR BI-RADS breast composition Category c). There are no significant masses, abnormal calcifications, or other abnormalities. MM/MM tomosynthesis screening BI IMPRESSION: No mammographic evidence of malignancy. ASSESSMENT: BI-RADS BI-RADS 1 - Negative RECOMMENDATION: Routine annual mammography screening. 1 year F/U This examination should not preclude the clinical evaluation of a suspicious palpable abnormality. This patient's information was entered into a reminder system with a target due date for their next mammogram. Dictated By: Idalmis Reed MD Signed By: <Electronically signed by Idalmis Reed MD in OV> 02/03/24 1357 DD/ 0836 TD/TT: St[employer] Machine Drawer In: Procedure Note Donotuseinterpreter, Image - [facility]03/[facility] [address] [place] [address] Mammography Report Signed Patient: Albert Cohen#: [id number] 12 : 1965Acct:[id number] Age/Sex: 58 / FADM Date: 01/08/24 Loc: EMEKA Attending Dr: Kristi Gilbert RPG DEVELOPER Ordering Physician: Kristi Gilbert FNPResults: 1Nega tive Date of Service: 01/08/24Follow Up: 1 Year From Orig inal Mammogram Procedure(s): MM tomosynthesis screening BI Accession Number(s): [id number] cc: Kristi Gilbert RPG DEVELOPER EXAMINATION: MM SCREENING DIGITAL BREAST TOMOSYNTHESIS, BILATERAL CLINICAL INFORMATION: Screening. Asymptomatic. COMPARISON: Mammography: This study is compared with prior exams dating back to 2018. TECHNIQUE: Digital breast tomosynthesis is performed in both the craniocaudal and mediolateral oblique views along with computer-aided detection (CAD). Synthesized 2D images are generated from the tomosynthesis. FINDINGS: The breasts are heterogeneously dense, which may obscure small masses (ACR BI-RADS breast composition Category c). There are no significant masses, abnormal calcifications, or other abnormalities. MM/MM tomosynthesis screening BI IMPRESSION: No mammographic evidence of malignancy. ASSESSMENT: BI-RADS BI-RADS 1 - Negative RECOMMENDATION: Routine annual mammography screening. 1 year F/U This examination should not preclude the clinical evaluation of a suspicious palpable abnormality. This patient's information was entered into a reminder system with a target due date for their next mammogram. Dictated By: Idalmis Reed MD Signed By: <Electronically signed by Idalmis Reed MD in OV> 02/03/24 1357 DD/ 0836 TD/TT: Stitch [employer] Machine Drawer In: [facility] IMG BI PROCEDURES Final Resul t * Hepatitis Panel, General (12/04/2023 8:15 AM EDT) Hepatitis A IgM Nonreactive Nonreactive [facility] Comment:IgM antibodies to SIMON V not detected; does not exclude earlyacute or recovered HAV infection. ~Hepatitis B Surface Antibody NONREACTIVE Nonreactive [facility] Comment:Nonreactive: < 8.00 mIU/mL Hepatitis B Core Antibody Nonreactive Nonreactive [facility] Hepatitis C Antibody Nonreactive Nonreactive [facility] Comment:Antibodies to HCV no t detected; does not exclude early acuteHCV infection. Hepatitis B Surface Ag Negative Negative [facility] Blood 12/04/2023 8:15 AM EDT 12/04/2023 11:41 AM EDT [facility] LAB BLOOD ORDERABLES Final Re sult [facility] [address] [place] [phone] * HPV mRNA E6/E7 w/Reflex to HPV Genotypes 16, 18/45 (03/14/2023 2:38 PM EDT) HPV nRNA E6/E7 Not Detected Not Detected [facility] Comment:Methodology: Transcr iption-Mediated AmplificationThis assay detects E6/E7 viral messenger RNA (mRNA) from 14high-risk HPV types (16,18,31,33,35,39,45,51,52,56,58,59,66,68).Cervical sources are required for HPV testing.If a vaginal source from a patient who has had atotal hysterectomy with removal of cervix wassubmitted, please contact the testing laboratoryfor alternative testing options.For additional information, please refer [email or web address](This link if provided for information/educational purposes only.)THIS TEST WAS PERFORMED AT:[facility] [address] [id number] LI MD HPV mRNA E6/E7 TNP [facility] HPV 16 RNA TNP [facility] HPV 18/45 RNA TNP [facility] 03/14/2023 2:38 PM EDT 03/17/2023 9:30 AM EDT [facility] CYTOLOGY ORDERABLES Final Result [facility] [address] [place] [address] [phone] * Pap Smear (03/14/2023 2:38 PM EDT) 03/14/2023 2:38 PM EDT 03/17/2023 9:30 AM EDT Narrative [facility] - 03/24/2023 1:34 PM EDT ----- ------- Name: Staci Cohen Age/Sex: 57/F : 1965 Unit#: [id number] Attend Dr: Kristi Gilbert [facility] Re03/14/23 Status: DEP REF Location: ANITAP Disch: ----- ------- SPEC : [id number] RECD: 03/17/23 STATUS: ARNAV MCKEE NUM: [id number] JASON: 03/14/23-[address] [facility] [address]: Kristi Gilbert [facility] ENTERED: 03/17/23 SP TYPE: Pap Smr OTHR DR: ORDERED: Pap Smear Interpretation Satisfactory for evaluation. Mild inflammation. Negative for intraepithelial lesion or malignancy. HPV mRNA E6/E7: NOT DETECTED This assay detects E6/E7 viral messenger RNA (mRNA) from 14 high-risk HPV types (16, 18, 31, 33, 35, 39, 45, 51, 52, 56, 58, 59, 66, 68) HPV testing performed by [employer], [place], [place]. See reference laboratory pion of the EMR for entire report. Clinical Information LMP: Postmenopausal Previous PAP test: Unknown date/findings Material Received ThinPrep-Cervical ----- ------- Signed (signature on file) ISRA Allen (ASCP) 03/24/23 1334 ----- ------- END OF REPORT [facility] LAB CYTOLOGY ORDERABLES Final Result [facility] [address] [place] [phone] * Cologuard?? colon cancer screening (12/18/2022) Cologuard Cancer Screen Negative Comment:Repeate in 3 years Stool Anal structure / Unknown Historical Provider LAB MOLECULAR DIAGNOSTICS ORDERABLES Final Result from Last 3 Months or Most Recently Relevant to Health Maintenance Insurance [facility] * Guarantor: Staci Cohen Account Type Relation to Patient Date of Phone Billing Address Personal/Family Self [address] [place] Care Teams Infrastructure Solutions Architect Relationship Specialty Start Date End Date Kristi Gilbert FNP [address] [place] [address] PCP - General Family Medicine 05/14/22
== END 2024-12-16 10:09 | disposition home or self-care (01) ==
LOC: HO.US 10:08
PROVIDERS: PCP Registered Nurse; Visit Provider Registered Nurse
DX: K76.0 Fatty (change of) liver, not elsewhere classified (principal)
CPT/HCPCS: 76700

== ENCOUNTER → 2024-12-16 10:11 | Outpatient (BNV) | payer OTHER, SELFPAY | PROVIDERS: PCP Registered Nurse; Visit Provider Radiology Diagnostic Radiology | DX: K76.0 Fatty (change of) liver, not elsewhere classified (principal) | CPT/HCPCS: 76700 ==

== ENCOUNTER 2025-01-13 07:51 | Outpatient (REF) | payer OTHER, SELFPAY ==
--- OUTSIDE RECORDS SUMMARY | 2025-01-13 07:53 | XMS_ITS | Clinical Summary ---
Author Organization [employer] Address [address] [place] [address] [address] [place] [address] Care Team Providers Care Art Class Model Name Role Phone Kristi Gilbert PULPING MACHINE OPERATOR Primary Care Provider Allergies No known active allergies Medications rosuvastatin (Crestor) 40 MG tablet TAKE 1 TABLET BY MOUTH DAILY 90 tablet 1 3 Active Alcohol Swabs (Alcohol Prep) padsIndications :Prediabetes,Sh aking Use one pad each to prep skin prior to injection as directed 100 each 11 4 Active Lancets 33G miscIndications :Prediabetes,Sh aking Use as directed to check blood sugar four times daily 100 each 3 4 Active Blood Glucose Monitoring Suppl (GNP Easy Touch Glucose Meter) deviceIndicatio ns:Prediabetes, Shaking Use as directed to check blood sugar four times daily 1 each 4 Active glucose blood test stripIndication s:Prediabetes,S haking Use as directed to check blood sugar four times daily 100 each 12 4 Active atorvastatin (Lipitor) 80 MG tabletIndicatio ns:Steatosis of liver TAKE 1 TABLET BY MOUTH EVERY DAY 90 tablet 3 4 Active metFORMIN XR (Glucophage-XR) 500 MG 24 hr tablet TAKE 1 TABLET BY MOUTH TWICE DAILY 180 tablet 1 5 Active Active Problems Problem Noted Date Diagnosed Date [...] 3-5x/month for severe pain Will refer for GYRO COMPASS TESTER contract Steatosis of liver 11/19/2022 Encounters Date Type Department Care Team Description 12/22/2024 Orders Only [facility] [address] [place] [phone] Kristi Gilbert FNP 12/08/2024 Results Follow-Up [facility] [address] [place] [phone] Kristi Gilbert FNP Albumin, Random Urine W/Creatinine, Lipid Panel, Standard, HIV-1/2 Antigen and Antibodies, Fourth Generation, with Reflexes, Additional followed-up results: 3 11/26/2024 9:30 AM EDT Office Visit [facility] [address] [place] [phone] Kristi Gilbert FNP Healthcare maintenance (Primary Dx); Prediabetes; Encounter for immunization 11/26/2024 Travel 11/25/[address] [address] Kristi Gilbert FNP Chart prep 11/17/2024 Patient Outreach [address] [address] Kristi Gilbert FNP Pre-visit Planning ((Unable to reach for PVP screening, LVM)) from Last 3 Months Immunizations Immunization Administration [...] CT Colonography 1965 Colonoscopy 1965 FIT 1965 Sigmoidoscopy 1965 Diabetes: Foot Exam 1975 Alcohol/Substance Use Screening 1977 Hepatitis A Vaccines (1 of 2 - Risk 2-dose series) 1984 Zoster Vaccines (2 of 2) 10/06/2019 08/11/2019 FOBT 12/19/2023 12/18/2022, 12/10/2022 COVID-19 Vaccine ( season) 2024 05/05/2021, 07/12/2020, 06/21/2020 Hepatitis B Vaccines (2 of 3 - 19+ 3-dose series) 12/24/2024 11/26/2024 Mammogram 01/07/2025 01/08/2024, 12/21, 10/24/2017, Additional history exists Influenza Vaccine (#1) 2025 , 04/07/2021, 05/12/2020 Diabetes: Hemoglobin A1C 05/28/2025 025, 11/25/2023, 04/26/2022, Additional history exists DTaP/Tdap/Td Vaccines (2 - Td or Tdap) 07/03/2025 07/03/2015 Depression Screening 11/26/2025 11/26/2024, 03/14/20 23 Diabetes: Urine Protein Screening 11/26/2025 11/26/2024 Disability Screening 11/26/2025 11/26/2024 Lipid Panel 11/26/2025 11/26/2024, 06/09/2023, 04/26/2022, Additional history exists SDOH Screening 11/26/2025 [...] AM EDT Narrative 12/16/2024 11:18 AM EDT [place] [address] Ultrasound Report Signed Patient: tSaci oChen MR#: [id number] [birth year] : 1965 Acct:[id number] Age/Sex: 59 / F ADM Date: 12/16/24 Loc: HO.US Attending Dr: Kristi ENCISO Ordering Physician: Kristi Gilbert Date of Service: 12/16/24 Procedure(s): US abdomen complete Accession Number(s): [id number] cc: Kristi Gilbert EXAMINATION: US ABDOMEN HISTORY: chronic mild liver [...] 12/16/24 1115 DD/ 1024 TD/TT: 12/16/24 1039 Stock Raiser: Procedure Note Donotuseinterpreter, Image - 12/16/[address] [address] Ultrasound Report Signed Patient: Albert Cohen#: [id number] 12 : 1965Acct:[id number] Age/Sex: 59 / FADM Date: 12/16/24 Loc: HO.US Attending Dr: Kristi ENCISO Ordering Physician: Kristi Gilbert Date of Service: 12/16/24 Procedure(s): US abdomen complete Accession Number(s): [id number] cc: Kristi Gilbert EXAMINATION: US ABDOMEN HISTORY: chronic mild liver [...] 12/16/24 1115 DD/ 1024 TD/TT: 12/16/24 1039 Stock Raiser: [facility] PULPING MACHINE OPERATOR IMG US PROCEDURES Final Resul t * Albumin, Random Urine W/Creatinine (11/26/2024 10:34 AM EDT) Creatinine, Urine 65.04 mg/dL [facility] Microalbumin Urine <5.0 mg/L [facility] Microalbum Creatinine Ratio Ur TNP <30 ug/mg cr [facility] Comment:Unable to calculate albumin/creatinine ratio due to lowmicroalbumin or creatinine result. Urine 11/26/2024 10:3 4 AM EDT 11/26/2024 1:08 PM EDT [facility] LAB URINE ORDERABLES Final Re sult Performing Organization Address [facility] Co de Phone Number [facility] [address] [place] [address] [phone] * HIV-1/2 Antigen and Antibodies, Fourth Generation, with Reflexes (11/26/2024 10:34 AM EDT) HIV AB/AG Nonreactive Nonreactive [facility] Comment:HIV-1 p24 Ag and/or HIV-1/HIV-2 Ab not detected.A test result that is nonreactive does not exclude thepossibility of exposure to or infection with HIV-1 and/orHIV-2. Nonreactive results in this assay for individualswith prior exposure to HIV-1 and/or HIV-2 may be due toantigen and antibody levels that are below the limit ofdetection of this assay.The [employer] HIV Ag/Ab Combo assay result andsupplemental assay results should be interpreted inconjunction with the patient's clinical presentation,history and other laboratory results. If the results areinconsistent with clinical evidence, additional testing issuggested to confirm the result. Blood Venous blood specimen / Unknown 11/26/2024 10:34 AM EDT 11/26/2024 1:17 PM EDT [facility] LAB BLOOD ORDERABLES Final Re sult Performing Organization Address [facility]/ZIP Co de Phone Number [facility] [address] [place] [address] [phone] * Hemoglobin A1c (11/26/2024 10:34 AM EDT) Hemoglobin A1c 5.7 <6.0 % [facility] Comment:Hemoglobin A1C Refer ence Range Adults: 4.8 - 6.0 % Non diabetic: < 6.0 % Goal: < 7.0 %Additional Action Suggested: > 8.0 %Note: Hemoglobin A1c results are invalid for patients with abnormal amounts of HbF. Blood transfusions may impact the HbA1c concentration in the patient sample. Estimated Average Glucose 117 mg/dL [facility] Comment:eAG = Estimated ave rage glucose which is %A1C expressed asaverage glucose, using the formula of the Y4F-FmhvobpLqukgtd Glucose study (ADAG), Diabetes Care, Vol.31,#8,Jan. 2007 Blood Venous blood specimen / Unknown 11/26/2024 10:34 AM EDT 11/26/2024 1:17 PM EDT [facility] PULPING MACHINE OPERATOR LAB BLOOD ORDERABLES Final Re sult [facility] [address] [place] [phone] * (ABNORMAL) Lipid Panel, Standard (11/26/2024 10:34 AM EDT) Triglycerides 145 <150 mg/dL [facility] Comment:Desirable Triglyceri de: less than 150 mg/dLBorderline High Triglyceride 150-199 mg/dLHigh Triglyceride: 200-499 mg/dLVery High Triglyceride: greater than or equal to 5OO mg/dL Cholesterol 196 <200 mg/dL [facility] Comment:Desirable Cholestero l: less than 200 mg/dLBorderline High Cholesterol: 200-239 mg/dLHigh Cholesterol: greater than 239 mg/dL LDL Cholesterol Calculated 121(H) <100 mg/dL [facility] Comment:Desirable LDL: less than 100 mg/dLNear Optimal/Above Optimal LDL: 110- 129 mg/dLBorderline High LDL: 130-159 mg/dLHigh LDL: 160-189 mg/dLVery High LDL: greater than or equal to 190 mg/dL HDL Cholesterol 46 >40 mg/dL [facility] Comment:Desirable HDL: great er than 40 mg/dL Note: This HDL assay may give artificially low results in patients with liver disease. Blood Venous blood specimen / Unknown 11/26/2024 10:34 AM EDT 11/26/2024 1:17 PM EDT [facility] LAB BLOOD ORDERABLES Final Re sult [facility] [address] [place] [address] [phone] * (ABNORMAL) Comprehensive Metabolic Panel (11/26/2024 10:34 AM EDT) Sodium 140 135 - 145 mmol/L [facility] Potassium 4.1 3.3 - 5.1 mmol/L [facility] Chloride 106 96 - 108 mmol/L [facility] Carbon Dioxide 30(H) 22 - 29 mmol/L [facility] Anion Gap 8(L) 12 - 20 [facility] Urea Nitrogen (BUN) 15 9 - 16 mg/dL [facility] Creatinine, Serum 0.68 0.5 - 1.4 mg/dL [facility] Estimated Glomerular Filt Rate >60 [facility] Comment:Chronic Kidney Disea se: Estimated GFR < 60 mL/min/1.89k7Xagfix Kidney Disease: Estimated GFR < 15 mL/min/1.73m2 Glucose 91 60 - 115 mg/dL [facility] Calcium 9.7 8.4 - 10.2 mg/dL [facility] Bilirubin, Total 0.8 0.0 - 1.0 mg/dL [facility] Aspartate Amino Transferase 41(H) 5 - 31 U/L [facility] Alanine Aminotransferase 37(H) 0 - 31 U/L [facility] Total Protein 7.7 6.5 - 8.0 g/dL [facility] Albumin Level 4.4 3.5 - 5.0 g/dL [facility] Alkaline Phosphatase 76 39 - 117 U/L [facility] Blood Venous blood specimen / Unknown 11/26/2024 10:34 AM EDT 11/26/2024 1:17 PM EDT [facility] LAB BLOOD ORDERABLES Final Re sult [facility] [address] [place] [address] [phone] * BI Mammogram Screening Tomosynthesis Bilateral (01/08/2024 8:36 AM EDT) Anatomical Region Laterality Modality Breast Bilateral Mammography 01/08/2024 8:36 AM EDT Narrative 02/03/2024 2:03 PM EDT [address] [place] [address] Mammography Report Signed Patient: Staci Cohen MR#: [id number] 12 : 1965 Acct:[id number] Age/Sex: 58 / F ADM Date: 01/08/24 Loc: NATALIO Attending Dr: Kristi Gilbert PULPING MACHINE OPERATOR Ordering Physician: Kristi Gilbert Results: 1Nega tive Date of Service: 01/08/24 Follow Up: 1 Year From Orig inal Mammogram Procedure(s): MM tomosynthesis screening BI Accession Number(s): [id number] cc: Kristi Gilbert PULPING MACHINE OPERATOR EXAMINATION: MM SCREENING DIGITAL BREAST TOMOSYNTHESIS, BILATERAL [...] in OV> 02/03/24 1357 DD/ 0836 TD/TT: Stock Raiser: Procedure Note Donotuseinterpreter, Image - 02/03/2024 [facility] [address] [place] [address] Mammography Report Signed Patient: Albert Cohen#: [id number] 12 : 1965Acct:[id number] Age/Sex: 58 / FADM Date: 01/08/24 Loc: HO.MAMMO Attending Dr: Kristi Gilbert PULPING MACHINE OPERATOR Ordering Physician: Kristi Gilbert FNPResults: 1Nega tive Date of Service: 01/08/24Follow Up: 1 Year From Orig inal Mammogram Procedure(s): MM tomosynthesis screening BI Accession Number(s): [id number] cc: Kristi Gilbert EXAMINATION: MM SCREENING DIGITAL BREAST TOMOSYNTHESIS, BILATERAL [...] in OV> 02/03/24 1357 DD/ 0836 TD/TT: Stock Raiser: Kristi Vladimir PULPING MACHINE OPERATOR IMG BI PROCEDURES Final Resul t * Hepatitis Panel, General (12/04/2023 8:15 AM EDT) Hepatitis A IgM Nonreactive Nonreactive [facility] Comment:IgM antibodies to SIMON V not detected; does not exclude earlyacute or recovered HAV infection. ~Hepatitis B Surface Antibody NONREACTIVE Nonreactive [facility] Comment:Nonreactive: < 8.00 mIU/mL Hepatitis B Core Antibody Nonreactive Nonreactive [facility] Hepatitis C Antibody Nonreactive Nonreactive [facility] Comment:Antibodies to HCV no t detected; does not exclude early acuteHCV infection. Hepatitis B Surface Ag Negative Negative [facility] Blood 12/04/2023 8:15 AM EDT 12/04/2023 11:41 AM EDT [facility] BLOOD ORDERABLES Final Re sult [facility] [address] [place] [phone] * HPV mRNA E6/E7 w/Reflex to HPV Genotypes 16, 18/45 (03/14/2023 2:38 PM EDT) HPV nRNA E6/E7 Not Detected Not Detected [facility] Comment:Methodology: Transcr iption-Mediated AmplificationThis assay detects E6/E7 viral messenger RNA (mRNA) from 14high-risk HPV types (16,18,31,33,35,39,45,51,52,56,58,59,66,68).Cervical sources are required for HPV testing.If a vaginal source from a patient who has had atotal hysterectomy with removal of cervix wassubmitted, please contact the testing laboratoryfor alternative testing options.For additional information, please refer [email or web address]/[email or web address](This link if provided for information/educational purposes only.)THIS TEST WAS PERFORMED AT:[facility] [place] [phone] LI MD HPV mRNA E6/E7 TNP [facility] HPV 16 RNA TNP [facility] HPV 18/45 RNA [facility] 03/14/2023 2:38 PM EDT 03/17/2023 9:30 AM EDT Kristi Gilbert [facility] CYTOLOGY ORDERABLES Final Result [facility] [address] [place] [phone] * Pap Smear (03/14/2023 2:38 PM EDT) 03/14/2023 2:38 PM EDT 03/17/2023 9:30 AM EDT Narrative [facility] - 03/24/2023 1:34 PM EDT ----- ------- Name: Staci Cohen Age/Sex: 57/F : 1965 Unit#: [id number] Attend Dr: Kristi Gilbert [facility] Re03/14/23 Status: DEP REF Location: [facility] Disch: ----- ------- SPEC : [id number] RECD: 03/17/23 STATUS: ARNAV MCKEE NUM: [id number] JASON: 03/14/23-[address]: Kristi Gilbert [facility] ENTERED: 03/17/23-1131 SP TYPE: Pap Smr OTHR DR: ORDERED: Pap Smear Interpretation Satisfactory for evaluation. Mild inflammation. Negative for intraepithelial lesion or malignancy. HPV mRNA E6/E7: NOT DETECTED This assay detects E6/E7 viral messenger RNA (mRNA) from 14 high-risk HPV types (16, 18, 31, 33, 35, 39, 45, 51, 52, 56, 58, 59, 66, 68) HPV testing performed by [employer], [place], [place]. See reference laboratory pion of the EMR for entire report. Clinical Information LMP: Postmenopausal Previous PAP test: Unknown date/findings Material Received ThinPrep-Cervical ----- ------- Signed (signature on file) ISRA Allen (ASCP) 03/24/23 1334 ----- ------- END OF REPORT [facility] CYTOLOGY ORDERABLES Final Result [facility] [address] [place] [phone] * Cologuard?? colon cancer screening (12/18/2022) Cologuard Cancer Screen Negative Comment:Repeate in 3 years Stool Anal structure / Unknown Historical Provider MD LAB MOLECULAR DIAGNOSTICS ORDERABLES Final Result from Last 3 Months or Most Recently Relevant to Health Maintenance Insurance [facility] * Guarantor: Staci Cohen Account Type Relation to Patient Date of Phone Billing Address Personal/Family Self [address] [place] Care Teams Art Class Model Relationship Specialty Start Date End Date Kristi Gilbert FNP [address] [place] [address] [place] PCP - General Family Medicine 05/14/22
== END 2025-01-13 07:52 | disposition home or self-care (01) ==
LOC: HO.MAMMO 07:51
PROVIDERS: PCP Registered Nurse; Visit Provider Registered Nurse
DX: Z12.31 Encounter for screening mammogram for malignant neoplasm of breast (principal)
CPT/HCPCS: 77063; 77067

== ENCOUNTER → 2025-01-13 08:15 | Outpatient (BNV) | payer OTHER, SELFPAY | PROVIDERS: PCP Registered Nurse; Visit Provider Radiology Body Imaging | DX: Z12.31 Encounter for screening mammogram for malignant neoplasm of breast (principal) | CPT/HCPCS: 77063; 77067 ==

== ENCOUNTER 2025-05-06 09:46 | Outpatient (REF) | payer SELFPAY ==
--- OUTSIDE RECORDS SUMMARY | 2025-05-06 09:00 | XMS_ITS | Encounter Summary ---
Author Organization [employer] Address [address] [place] [address] 7 [place] [address] Care Team Providers Care Food Prep Worker Name Role Phone Vladimir Kristi [facility] Primary Care Provider [phone] Encounter Details Date Type Department Care Team ([facility] st Contact Info) Description 05/06/2025 9:00 AM EST Office Visit [facility] [address] [place], [place] [phone] [place] [facility] [address] [place] [address] Steatosis of liver (Primary Dx); Prediabetes; Other insomnia; Encounter for immunization Social History Tobacco Use Types Packs/Day Years [...] not want or need it 11/2024 Comments No Sex and Gender Information Value Date Recorded Sex Assigned at Female 04/22/2022 10:29 AM EDT Legal Sex Female 10:29 AM EDT Gender Identity Female 04/22/2022 10:29 AM EDT Sexual Orientation Choose not to disclose 2021 10:29 AM EDT documented as of this encounter Last Filed Vital Signs Vital Sign Reading Time Taken Comments Blood Pressure 122/78 05/06/2025 8:48 AM EST Pulse 70 05/06/2025 8:48 AM EST Temperature 36.7 C (98 F) 05/06/2025 8:48 AM EST Respiratory Rate 20 05/06/2025 8:48 AM EST Oxygen Saturation 98% 05/06/2025 8:48 AM EST Inhaled Oxygen Concentration - - Weight 54 kg (119 lb) 05/06/2025 8:48 AM EST Height 149.9 cm (4' 11 ) 05/06/2025 8:48 AM EST Body Mass Index 24.04 05/06/2025 8:48 AM EST documented in this encounter Plan of Treatment Scheduled Orders Name Type Priority Associated Diagnoses Orde r Schedule CBC auto differential Lab Routine Steatosis of liver Expected: 05/06/2025 (Approximate), Expires: 05/06/2026 Hepatic Function Panel Lab Routine Steatosis of liver Expected: 05/06/2025 (Approximate), Expires: 05/06/2026 documented as of this encounter Procedures Procedure Name Priority Date/Time Associated Diagnosis Comments POCT GLUCOSE Routine 05/06/2025 8:49 AM EST Prediabetes documented in this encounter Results * POCT Glucose (05/06/2025 8:49 AM EST) Pathologist [facility] Glucose Blood, POC 167 60 - 200 mg/dL QC Media Lot # [id number] Lot# Expiration Date ,[id number] Blood Capillary blood specimen / Unknown 05/06/2025 8:49 AM EST [facility] POINT OF CARE TEST ENTER/EDIT ORDERABLES Final Result documented in this encounter Visit Diagnoses Diagnosis Steatosis of liver- Primary Other chronic nonalcoholic liver disease Prediabetes Other abnormal glucose Other insomnia Encounter for immunization documented in this encounter Additional Health Concerns Assessment Noted Time PHQ-9 Depression Total Score: 0 03/14/20 23 1:58 PM EDT documented as of this encounter Care Teams Food Prep Worker Relationship Specialty Start Date End Date VladimirKristi rodriguez FNP [address] [place] [phone] PCP - General Family Medicine 05/14/22 documented as of this encounter
--- OUTSIDE RECORDS SUMMARY | 2025-05-06 10:58 | XMS_ITS | Encounter Summary ---
Author Organization [employer] Address [address] [place] [address] 7 [place] [address] Care Team Providers Care Case Liner Name Role Phone Vladimir [facility] Primary Care Provider [phone] Reason for Visit * Reason Onset Date Comments Med Refill 04/25/2025 Encounter Details Date Type Department Care Team ([facility] st Contact Info) Description 04/25/2025 Refill [facility] [address] [place] [address] [facility] [address] [place] [address] Steatosis of liver Social History Tobacco Use Types Packs/Day Years [...] AM EDT documented as of this encounter Plan of Treatment Not on file documented as of this encounter Visit Diagnoses Diagnosis Steatosis of liver Other chronic nonalcoholic liver disease documented in this encounter Additional Health Concerns Assessment Noted Time PHQ-9 Depression Total Score: 0 03/14/20 23 1:58 PM EDT documented as of this encounter Care Teams Case Liner Relationship Specialty Start Date End Date Kristi Gilbert FNP [address] [place] [phone] PCP - General Family Medicine 05/14/22 documented as of this encounter
--- OUTSIDE RECORDS SUMMARY | 2025-05-06 10:58 | XMS_ITS | Encounter Summary ---
Author Organization [employer] Address [address] [place] [address] 7 [place] [address] Care Team Providers Care Traffic Engineer Name Role Phone Kristi Gilbert ZARIA Primary Care Provider [phone] Reason for Visit * Reason Onset Date Comments Med Refill 09/20/2024 Encounter Details Date Type Department Care Team ([facility] st Contact Info) Description 09/20/2024 Refill [facility] MEDICINE [address] [place] [address] Joan Gardner MD [address] [place] [address] Social History Tobacco Use Types Packs/Day Years Used Date Smoking Tobacco: Never Passive Smoke Exposure: Never Smokeless Tobacco: Never Alcohol Use Standard Drinks/Week Comments Never 0 (1 standard drink = 0.6 oz pur e alcohol) Depression Answer Date Recorded Patient Health Questionnaire-9 Score 0 03/14/2023 Housing Stability Answer Date Recorded What is your housing situation today? I am not s ure 04/15/[address] you li ve. Do you have problems with any of the following? None of the above 04/15/2023 Food Insecurity Answer Date Recorded Within the past 12 months, y ou worried that your food would run out before you got money to buy more: Never True 04/15/2023 Within the past 12 months,th e food you bought just didn't last and you didn't have enough money to get more: Never True Transportation Answer Date Recorded In the past 12 months, has l ack of transportation kept you from medical appts, meetings, work or from getting things needed for daily living? No 04/15/2023 Utilities Answer Date Recorded In the past 12 months, has t he electric, gas, oil or water company threatened to shut off services in your home? No 04/15/2023 Depression Answer Date Recorded Patient Health Questionnaire-2 Score 0 03/14/2023 Comments Unknown Sex and Gender Information Value [...] documented as of this encounter Care Teams Traffic Engineer Relationship Specialty Start Date End Date Kristi Gilbert FNP [address] [place] [id number] PCP - General Family Medicine 05/14/22 documented as of this encounter
--- OUTSIDE RECORDS SUMMARY | 2025-05-06 10:58 | XMS_ITS | Encounter Summary ---
Author Organization [employer] Address [address] [place] [address] 7 [place] [address] Care Team Providers Care Mortgage Field Inspector Name Role Phone Vladimir [facility] Primary Care Provider [phone] Reason for Visit * Reason Onset Date Comments Med Refill 04/27/2024 Encounter Details Date Type Department Care Team ([facility] st Contact Info) Description 04/27/2024 Refill [facility] MEDICINE [address] [place] [address] [facility] [address] [place] [address] Steatosis of liver Social History Tobacco Use Types Packs/Day Years Used Date Smoking Tobacco: Never Smokeless Tobacco: Never Alcohol Use Standard [...] documented as of this encounter Care Teams Mortgage Field Inspector Relationship Specialty Start Date End Date Kristi Gilbert FNP [address] [place] [phone] PCP - General Family Medicine 05/14/22 documented as of this encounter
--- OUTSIDE RECORDS SUMMARY | 2025-05-06 10:58 | XMS_ITS | Encounter Summary ---
Author Organization [employer] Address [address] [place] [address] 7 [place] [address] Care Team Providers Care Furnace Liner Name Role Phone Vladimir Kristi [facility] Primary Care Provider [phone] Reason for Visit * Reason Onset Date Comments chart prep 05/05/2025 Encounter Details Date Type Department Care Team ([facility] st Contact Info) Description 05/05/2025 Telephone [facility] MEDICINE [address] [place] [address] [place] [facility] [address] [place] [address] chart prep Social History Tobacco Use Types Packs/Day [...] encounter Miscellaneous Notes * Telephone Encounter - Pranay Young [place] - 05/05/2025 11:42 AM EST Chart Prep Labs: done Images: done Referrals: complete Vaccines due: Covid, Flu, Hep B, Hep A, RSV, and Zoster Screenings: foot exam Overdue care gaps: Glucose and SBIRT documented in this encounter Plan of Treatment Not on file documented as of this encounter Visit Diagnoses Not on filedocumented in this encounter Additional Health Concerns Assessment Noted Time PHQ-9 Depression Total Score: 0 03/14/20 23 1:58 PM EDT documented as of this encounter Care Teams Furnace Liner Relationship Specialty Start Date End Date Kristi Gilbert FNP [address] [place] [id number] PCP - General Family Medicine 05/14/22 documented as of this encounter
--- OUTSIDE RECORDS SUMMARY | 2025-05-06 10:58 | XMS_ITS | Encounter Summary ---
Author Organization [employer] Address [address] [place] [address] 7 [place] [address] Care Team Providers Care Extractor Tender Raw Stock Name Role Phone Vladimir Kristi [employer] Primary Care Provider [phone] Encounter Details Date Type Department Care Team (Late st Contact Info) Description 09/30/2022 Telephone [facility] MEDICINE [address] [place], [place] [phone] Kristi Gilbert FNP [address] [place] [address] Social History Tobacco Use Types Packs/Day Years Used Date Smoking Tobacco: Never Assessed Comments Unknown Sex and Gender Information Value [...] Diagnoses Not on filedocumented in this encounter Care Teams Extractor Tender Raw Stock Relationship Specialty Start Date End Date Kristi Gilbert FNP [address] [place] [address] PCP - General Family Medicine 05/14/22 documented as of this encounter
--- OUTSIDE RECORDS SUMMARY | 2025-05-06 10:58 | XMS_ITS | Encounter Summary ---
Author Organization [employer] Address [address] [place] [address] 7 [place] [address] Care Team Providers Care Mobile Web Application Developer Name Role Phone Vladimir [facility] Primary Care Provider [phone] Reason for Visit * Reason Onset Date Comments Med Refill 03/25/2025 Encounter Details Date Type Department Care Team ([facility] st Contact Info) Description 03/25/2025 Refill [facility] MEDICINE [address] [place] [address] [place] [facility] [address] [place] [address] Social History Tobacco Use Types Packs/Day Years [...] documented as of this encounter Care Teams Mobile Web Application Developer Relationship Specialty Start Date End Date Kristi Gilbert FNP [address] [place] [address] PCP - General Family Medicine 05/14/22 documented as of this encounter
--- OUTSIDE RECORDS SUMMARY | 2025-05-06 10:58 | XMS_ITS | Clinical Summary ---
Author Organization [employer] Address [address] [place] [address] 7t [place] [address] Care Team Providers Care Brand Communications Manager Name Role Phone Kristi Gilbert CONTINUOUS IMPROVEMENT FACILITATOR Primary Care Provider [phone] Allergies No known active allergies Medications Alcohol Swabs (Alcohol Prep) padsIndication s:Prediabetes, Shaking [...] daily 100 each 12 11/24/19 24 Active brompheniramin e-pseudoephedr ine-DM 30-2-10 MG/5ML syrupIndicatio ns:COVID-19 Take 5 mL by mouth if needed in the morning, at noon, in the evening, and at bedtime for cough. 120 mL 03/08/20 25 Active traMADol (Ultram) 50 MG tabletIndicati ons:COVID-19 Take 1 tablet (50 mg) by mouth every 6 (six) hours if needed for severe pain. 12 tablet 03/08/20 25 Active metFORMIN XR (Glucophage-XR ) 500 MG 24 hr tablet TAKE 1 TABLET BY MOUTH TWICE DAILY 180 tablet 1 03/14/20 25 Active atorvastatin (Lipitor) 80 MG tabletIndicati ons:Steatosis of liver TAKE 1 TABLET BY MOUTH EVERY DAY 90 tablet 3 04/18/20 25 Active mirtazapine (Remeron) 7.5 MG tabletIndicati ons:Other insomnia Take 1 tablet (7.5 mg) by mouth at bedtime. 30 tablet 1 05/06/2025 10:44 AM EST 05/06/20 25 025 Active rosuvastatin (Crestor) 40 MG tablet TAKE 1 TABLET BY MOUTH DAILY 90 tablet 1 04/16/20 23 025 Discontinued atorvastatin (Lipitor) 80 MG tabletIndicati ons:Steatosis of liver TAKE 1 TABLET BY MOUTH EVERY DAY 90 tablet 3 04/27/20 24 025 Discontinued Active Problems Problem Noted Date [...] 3-5x/month for severe pain Will refer for SENIOR PUBLICATIONS SPECIALIST contract Steatosis of liver 11/19/2022 Encounters Date Type Department Care Team Description 05/06/2025 9:00 AM EST Office Visit [facility] [address] [place] [phone] [place] Kristi, [facility] Steatosis of liver (Primary Dx); Prediabetes; Other insomnia; Encounter for immunization 05/06/2025 Travel 05/05/2025 Telephone [facility] [address] [place] [address] Kristi Gilbert FNP 05/05/2025 Telephone [facility] [address] [place] [address] Kristi Gilbert FNP chart prep 04/29/2025 Travel 04/25/2025 Refill [facility] [address] [place] [address] Kristi Gilbert FNP Steatosis of liver 04/17/2025 Refill [facility] [address] [place], [place] [phone] Kristi Gilbert FNP Steatosis of liver 04/04/2025 Telephone [facility] [address] [place] [address] Kristi Gilbert FNP Dec Recall 03/25/2025 Refill [facility] [address] [place] [address] Kristi Gilbert FNP 03/13/2025 Refill [facility] [address] [place] [address] Kristi Gilbert FNP 03/08/2025 9:00 AM EDT Telemedicine [facility] [address] [place] [address] Neville Joyner MD COVID-19 (Primary Dx) 03/08/2025 Travel 03/07/2025 Refill [facility] [address] [place] [address] Kristi Gilbert CONTINUOUS IMPROVEMENT FACILITATOR Viral upper respiratory tract infection from Last 3 Months Immunizations Immunization Administration Dates Next Due Hep B, adult 05/06/2025,11/26/2024 Influenza Injectable Quadriv alant Preservative Free IIV4 [...] t he electric, gas, oil or water [employer] threatened to shut off services in your [...] Mass Index 24.04 05/06/2025 8:48 AM EST Plan of Treatment Health Maintenance Due Date Last Done Comments CT Colonography 1965 Colonoscopy 1965 FIT 1965 Sigmoidoscopy 1965 Diabetes: Foot Exam 1975 Hepatitis A Vaccines (1 of 2 - Risk 2-dose series) 1984 RSV Patients and Patients Aged 60 years or older (1 - Risk 50-74 years 1-dose series) 2015 Zoster Vaccines (2 of 2) 10/06/2019 08/11/2019 FOBT 12/19/2023 12/18/2022, 12/10/2022 COVID-19 Vaccine ( season) 2025 05/05/2021, 07/12/2020, 06/21/2020 Influenza Vaccine (#1) 2025 , 04/07/2021, 05/12/2020 Diabetes: Hemoglobin A1C 05/28/2025 025, 11/25/2023, 04/26/2022, Additional history exists Hepatitis B Vaccines (3 of 3 - Risk 3-dose series) 07/01/2025 05/06/2025, 11/26/2024 DTaP/Tdap/Td Vaccines (2 - Td or Tdap) 07/03/2025 07/03/2015 Depression Screening 11/26/2025 11/26/2024, 03/14/20 23 Diabetes: Urine Protein Screening 11/26/2025 11/26/2024 Lipid Panel 11/26/2025 11/26/2024, 06/0 09/2023, 04/26/2022, Additional history exists SDOH Screening 11/26/2025 11/26/2024 Colorectal Cancer Screening 12/18/2025 FIT DNA/Cologuard 12/18/2025 12/18/2022, 12/10/2022 Mammogram 01/13/2026 01/13/2025, 0701/2024, 01/02/2023, Additional history exists Disability Screening 04/29/2026 04/29/2025 Alcohol/Substance Use Screening 05/06/2026 05/06/2025 Tobacco Screening 05/06/2026 05/06/2025 Eye Exam 07/22/2026 07/22/2024, 06/25, 07/22/2024, Additional history exists Cervical Cancer Screening 03/14/2028 HPV/Cotest 03/14/2028 03/14/2023 Pap Smear 03/14/2028 03/14/2023 Hepatitis C Screening Completed 12/04/2023 , 04/06/2020, [...] GLUCOSE Routine 05/06/2025 8:49 AM EST Prediabetes BI MAMMOGRAM SCREENING TOMOSYNTHESIS BILATERAL Routine 01/13/2025 8:00 AM EDT HIV 1/2 ANTIGEN/ANTIBODY, FOURTH GENERATION W/RFL Routine 11/26/2024 10:34 AM EDT Healthcare maintenance ALBUMIN, RANDOM URINE W/CREATININE Routine 11/26/2024 10:34 AM EDT Prediabetes HEMOGLOBIN A1C Routine 11/26/2024 10:34 AM EDT Prediabetes LIPID PANEL, STANDARD Routine 11/26/2024 10:34 AM EDT Prediabetes HEPATITIS PANEL, GENERAL Routine 12/04/2023 8:15 AM EDT Steatosis of liver HPV MRNA E6/E7 REFLEX TO HPV 16, 18/45 Routine 03/14/2023 2:38 PM EDT PAP SMEAR Routine 03/14/2023 2:38 PM EDT LAB COLOGUARD COLON CANCER SCREEN Routine 12/18/2022 from Last 3 Months or Most Recently Relevant to Health Maintenance Results * POCT Glucose (05/06/2025 8:49 AM EST) Glucose Blood, POC 167 60 - 200 mg/dL QC Media Lot # [id number] Lot# Expiration Date Blood Capillary blood specimen / Unknown 05/06/2025 8:49 AM EST [facility] Vladimir CONTINUOUS IMPROVEMENT FACILITATOR POINT OF CARE TEST ENTER/EDIT ORDERABLES Final Result * BI Mammogram Screening Tomosynthesis Bilateral (01/13/2025 8:00 AM EDT) Anatomical Region Laterality Modality Breast Bilateral Mammography 01/13/2025 8:00 AM EDT Narrative 01/18/2025 8:10 PM EDT [facility] [address] [place], [place] [address] Mammography Report Signed Patient: Staci Cohen MR#: [id number] 12 : 1965 Acct:[id number] Age/Sex: 59 / F ADM Date: 01/13/25 Loc: HO.MAMMO Attending Dr: Kristi Gilbert CONTINUOUS IMPROVEMENT FACILITATOR Ordering Physician: Kristi Gilbert Results: 1Nega tilily Date of Service: 01/13/25 Follow Up: 1 Year From Orig inal Mammogram Procedure(s): MM tomosynthesis screening BI Accession Number(s): [id number] cc: Kristi Gilbert EXAMINATION: MM SCREENING DIGITAL BREAST TOMOSYNTHESIS, BILATERAL CLINICAL INFORMATION: Screening. Asymptomatic. COMPARISON: Comparison made to multiple prior, most recent January 08, 2024, and most remote October 08, 2017. TECHNIQUE: Digital breast tomosynthesis is performed in both the craniocaudal and mediolateral oblique views along with computer-aided detection (CAD). Synthesized 2D images are generated from the tomosynthesis. FINDINGS: BREAST COMPOSITION: The breasts are heterogeneously dense, which may obscure small masses (ACR BI-RADS breast composition Category c). BILATERAL BREASTS: No significant masses, suspicious calcifications or other abnormalities are seen in either breast. MM/MM tomosynthesis screening BI IMPRESSION: BILATERAL BREASTS: Negative, no mammographic evidence of malignancy. Normal interval follow-up is recommended in 12 months. ASSESSMENT: BI-RADS 1 - Negative RECOMMENDATION: Routine annual mammography screening. FOLLOW-UP: 1 year F/U This examination should not preclude the clinical evaluation of a suspicious palpable abnormality. This patient's information was entered into a reminder system with a target due date for their next mammogram. Electronically signed by: Reuben Mccoy MD 01/18/2025 08:07 PM EDT Dictated By: Reuben Mccoy MD Signed By: <Electronically signed by Reuben Mccoy MD in OV> 01/18/252006 DD/ 9 TD/TT: 01/13/25 0813 Sample Maker Original: Procedure Note Donotuseinterpreter, Image - [facility]/18/20[facility] [address] [place] [address] Mammography Report Signed Patient: Albert Cohen#: [id number] 12 : 1965Acct:[id number] Age/Sex: 59 / FADM Date: 01/13/25 Loc: NATALIO Attending Dr: Kristi Gilbert CONTINUOUS IMPROVEMENT FACILITATOR Ordering Physician: Kristi Gilbert FNPResults: 1Nega tive Date of Service: 01/13/25Follow Up: 1 Year From Orig inal Mammogram Procedure(s): MM tomosynthesis screening BI Accession Number(s): [id number] cc: Kristi Gilbert CONTINUOUS IMPROVEMENT FACILITATOR EXAMINATION: MM SCREENING DIGITAL BREAST TOMOSYNTHESIS, BILATERAL CLINICAL INFORMATION: Screening. Asymptomatic. COMPARISON: Comparison made to multiple prior, most recent January 08, 2024, and most remote October 08, 2017. TECHNIQUE: Digital breast tomosynthesis is performed in both the craniocaudal and mediolateral oblique views along with computer-aided detection (CAD). Synthesized 2D images are generated from the tomosynthesis. FINDINGS: BREAST COMPOSITION: The breasts are heterogeneously dense, which may obscure small masses (ACR BI-RADS breast composition Category c). BILATERAL BREASTS: No significant masses, suspicious calcifications or other abnormalities are seen in either breast. MM/MM tomosynthesis screening BI IMPRESSION: BILATERAL BREASTS: Negative, no mammographic evidence of malignancy. Normal interval follow-up is recommended in 12 months. ASSESSMENT: BI-RADS 1 - Negative RECOMMENDATION: Routine annual mammography screening. FOLLOW-UP: 1 year F/U This examination should not preclude the clinical evaluation of a suspicious palpable abnormality. This patient's information was entered into a reminder system with a target due date for their next mammogram. Electronically signed by: Reuben Mccoy MD 01/18/2025 08:07 PM EDT Dictated By: Reuben Mccoy MD Signed By: <Electronically signed by Reuben Mccoy MD in OV> 01/18/252006 DD/ 08 TD/TT: 01/13/25 0813 Sample Maker Original: [facility] CONTINUOUS IMPROVEMENT FACILITATOR IMG BI PROCEDURES Final Resul t * Albumin, Random Urine W/Creatinine (11/26/2024 10:34 AM EDT) Creatinine, Urine 65.04 mg/dL [facility] Microalbumin Urine <5.0 mg/L [facility] Microalbum Creatinine Ratio Ur TNP <30 ug/mg cr [facility] Comment:Unable to calculate albumin/creatinine ratio due to lowmicroalbumin or creatinine result. Urine 11/26/2024 10:3 4 AM EDT 11/26/2024 1:08 PM EDT [facility] LAB URINE ORDERABLES Final Re sult Performing Organization Address City/[facility]/ZIP Co de Phone Number [facility] [address] [place] [phone] * HIV-1/2 Antigen and Antibodies, Fourth Generation, with Reflexes (11/26/2024 10:34 AM EDT) HIV AB/AG Nonreactive Nonreactive [facility] Comment:HIV-1 p24 Ag and/or HIV-1/HIV-2 Ab not detected.A test result that is nonreactive does not exclude thepossibility of exposure to or infection with HIV-1 and/orHIV-2. Nonreactive results in this assay for individualswith prior exposure to HIV-1 and/or HIV-2 may be due toantigen and antibody levels that are below the limit ofdetection of this assay.The [email or web address] HIV Ag/Ab Combo assay result andsupplemental assay results should be interpreted inconjunction with the patient's clinical presentation,history and other laboratory results. If the results areinconsistent with clinical evidence, additional testing issuggested to confirm the result. Blood Venous blood specimen / Unknown 11/26/2024 10:34 AM EDT 11/26/2024 1:17 PM EDT [facility] LAB BLOOD ORDERABLES Final Re sult Performing Organization Address [facility]/ZIP Co de Phone Number [facility] [address] [place] [address] [phone] * Hemoglobin A1c (11/26/2024 10:34 AM EDT) Hemoglobin A1c 5.7 <6.0 % [facility] Comment:Hemoglobin A1C Refer ence Range Adults: 4.8 - 6.0 % Non diabetic: < 6.0 % Goal: < 7.0 %Additional Action Suggested: > 8.0 %Note: Hemoglobin A1c results are invalid for patients with abnormal amounts of HbF. Blood transfusions may impact the HbA1c concentration in the patient sample. Estimated Average Glucose 117 mg/dL [facility] Comment:eAG = Estimated ave rage glucose which is %A1C expressed asaverage glucose, using the formula of the [id number]-JquzqzpXktukxd Glucose study (ADAG), Diabetes Care, Vol.31,#8,Jan. 2007 Blood Venous blood specimen / Unknown 11/26/2024 10:34 AM EDT 11/26/2024 1:17 PM EDT [facility] LAB BLOOD ORDERABLES Final Re sult Performing Organization Address [facility] Co de Phone Number [facility] [address] [place] [phone] * (ABNORMAL) Lipid Panel, Standard (11/26/2024 10:34 AM EDT) Triglycerides 145 <150 mg/dL [facility] Comment:Desirable Triglyceri de: less than 150 mg/dLBorderline High Triglyceride 150-199 mg/dLHigh Triglyceride: 200-499 mg/dLVery High Triglyceride: greater than or equal to 5OO mg/dL Cholesterol 196 <200 mg/dL [facility] Comment:Desirable Cholestero l: less than 200 mg/dLBorderline High Cholesterol: 200-239 mg/dLHigh Cholesterol: greater than 239 mg/dL LDL Cholesterol Calculated 121(H) <100 mg/dL [facility] Comment:Desirable LDL: less than 100 mg/dLNear Optimal/Above Optimal LDL: 110- 129 mg/dLBorderline High LDL: 130-159 mg/dLHigh LDL: 160-189 mg/dLVery High LDL: greater than or equal to 190 mg/dL HDL Cholesterol 46 >40 mg/dL [facility] Comment:Desirable HDL: great er than 40 mg/dL Note: This HDL assay may give artificially low results in patients with liver disease. Blood Venous blood specimen / Unknown 11/26/2024 10:34 AM EDT 11/26/2024 1:17 PM EDT [facility] LAB BLOOD ORDERABLES Final Re sult Performing Organization Address [facility]/ZIP Co de Phone Number [facility] [address] [place] [address] [phone] * Hepatitis Panel, General (12/04/2023 8:15 AM EDT) Hepatitis A IgM Nonreactive Nonreactive [facility] Comment:IgM antibodies to SIMON V not detected; does not exclude earlyacute or recovered HAV infection. ~Hepatitis B Surface Antibody NONREACTIVE Nonreactive [facility] Comment:Nonreactive: < 8.00 mIU/mL Hepatitis B Core Antibody Nonreactive Nonreactive [facility] Hepatitis C Antibody Nonreactive Nonreactive [facility] Comment:Antibodies to HCV no t detected; does not exclude early acuteHCV infection. Hepatitis B Surface Ag Negative Negative [facility] Blood 12/04/2023 8:15 AM EDT 12/04/2023 11:41 AM EDT [facility] LAB BLOOD ORDERABLES Final Re sult [facility] [address] [place] [address] [phone] * HPV mRNA E6/E7 w/Reflex to HPV Genotypes 16, 18/45 (03/14/2023 2:38 PM EDT) HPV nRNA E6/E7 Not Detected Not Detected [facility] Comment:Methodology: Transcr iption-Mediated AmplificationThis assay detects E6/E7 viral messenger RNA (mRNA) from 14high-risk HPV types (16,18,31,33,35,39,45,51,52,56,58,59,66,68).Cervical sources are required for HPV testing.If a vaginal source from a patient who has had atotal hysterectomy with removal of cervix wassubmitted, please contact the testing laboratoryfor alternative testing options.For additional information, please refer tohttp://[email or web address]/faq/PBR500e0(This link if provided for information/educational purposes only.)THIS TEST WAS PERFORMED AT:[facility] [place] [id number] LI MD HPV mRNA E6/E7 TNP [facility] HPV 16 RNA TNP [facility] HPV 18/45 RNA TNP [facility] 03/14/2023 2:38 PM EDT 03/17/2023 9:30 AM EDT [facility] CYT[facility]Y ORDERABLES Final Result [facility] [address] [place] [phone] * Pap Smear (03/14/2023 2:38 PM EDT) 03/14/2023 2:38 PM EDT 03/17/2023 9:30 AM EDT Narrative [facility] - 03/24/2023 1:34 PM EDT ----- ------- Name: Staci Cohen Age/Sex: 57/F : 1965 Unit#: [id number] Attend Dr: Kristi Gilbert [facility] Re03/14/23 Status: DEP REF Location: [facility] Disch: ----- ------- SPEC : [id number] RECD: 03/17/23-929 STATUS: ARNAV MCKEE NUM: [id number] JASON: 03/14/23-[address] EN[facility]: 03/17/23-1131 SP TYPE: Pap Smr OTHR DR: ORDERED: Pap Smear Interpretation Satisfactory for evaluation. Mild inflammation. Negative for intraepithelial lesion or malignancy. HPV mRNA E6/E7: NOT DETECTED This assay detects E6/E7 viral messenger RNA (mRNA) from 14 high-risk HPV types (16, 18, 31, 33, 35, 39, 45, 51, 52, 56, 58, 59, 66, 68) HPV testing performed by [facility], [place], [place]. See reference laboratory pion of the EMR for entire report. Clinical Information LMP: Postmenopausal Previous PAP test: Unknown date/findings Material Received ThinPrep-Cervical ----- ------- Signed (signature on file) ISRA Allen (ASCP) 03/24/23 1334 ----- ------- END OF REPORT [facility] CYTOLOGY ORDERABLES Final Result [facility] [address] [place] [phone] * Cologuard?? colon cancer screening (12/18/2022) Cologuard Cancer Screen Negative Comment:Repeate in 3 years Stool Anal structure / Unknown us Historical Provider LAB MOLECULAR DIAGNOSTICS ORDERABLES Final Result from Last 3 Months or Most Recently Relevant to Health Maintenance Insurance * Guarantor: Staci Cohen Account Type Relation to Patient Date of Phone Billing Address Personal/Family Self [address] [place] Care Teams Brand Communications Manager Relationship Specialty Start Date End Date Kristi Gilbert FNP [address] [place] [address] [place] PCP - General Family Medicine 05/14/22
--- OUTSIDE RECORDS SUMMARY | 2025-05-06 10:58 | XMS_ITS | Encounter Summary ---
Author Organization [employer] Address [address] [place] [address] 7 [place] [address] Care Team Providers Care Boat Officer Name Role Phone Vladimir [facility] Primary Care Provider [phone] Reason for Visit * Reason Comments Med Refill Encounter Details Date Type Department Care Team ([facility] st Contact Info) Description 03/07/2025 Refill [facility] [address] [place], [place] [phone] [place] [address] [place] [address] Viral upper respiratory tract infection Social History Tobacco Use Types Packs/Day Years [...] as of this encounter Visit Diagnoses Diagnosis Viral upper respiratory tract infection Acute upper respiratory infections of unspecified site documented in this encounter Additional Health Concerns Assessment Noted Time PHQ-9 Depression Total Score: 0 03/14/20 23 1:58 PM EDT documented as of this encounter Care Teams Boat Officer Relationship Specialty Start Date End Date Kristi Gilbert FNP [address] [place] [address] PCP - General Family Medicine 05/14/22 documented as of this encounter
--- OUTSIDE RECORDS SUMMARY | 2025-05-06 10:58 | XMS_ITS | Encounter Summary ---
Author Organization [employer] Address [address] [place] [address] 7 [place] [address] Care Team Providers Care Fundraising Officer Name Role Phone Vladimir Kristi [facility] Primary Care Provider [phone] Reason for Visit * Reason Onset Date Comments Med Refill 04/26/2024 Encounter Details Date Type Department Care Team ([facility] st Contact Info) Description 04/26/2024 Telephone [facility] [address] [place] [address] [facility] [address] [place] [address] Med Refill Social History Tobacco Use Types Packs/Day Years [...] encounter Miscellaneous Notes * Telephone Encounter - Cindi Aguirre LPN - 04/26/2024 3:47 PM EST Medication pended to PCP. * Telephone Encounter - Armen Ferguson - 04/26/2024 3:41 PM EST TC from pt requesting medication refill. Medications needing refill : atorvastatin (Lipitor) 80 MG tablet To be sent to: [facility] - [place], [place] - [address] [place] [address] *Pt requesting a 90 day supply* documented in this encounter Plan of Treatment Not on file documented as of this encounter Visit Diagnoses Not on filedocumented in this encounter Additional Health Concerns Assessment Noted Time PHQ-9 Depression Total Score: 0 03/14/20 23 1:58 PM EDT documented as of this encounter Care Teams Fundraising Officer Relationship Specialty Start Date End Date Kristi Gilbert FNP [address] [facility] [place] [address] PCP - General Family Medicine 05/14/22 documented as of this encounter
--- OUTSIDE RECORDS SUMMARY | 2025-05-06 10:58 | XMS_ITS | Encounter Summary ---
Author Organization [employer] Address [address] [place] [address] [address] [place] [address] Care Team Providers Care Leather Belt Maker Name Role Phone Kristi Gilbert ZARIA Primary Care Provider [phone] Encounter Details Date Type Department Care Team (Latest Contact Info) Description 05/06/2025 Travel Social History Tobacco Use Types Packs/Day Years [...] documented as of this encounter Care Teams Leather Belt Maker Relationship Specialty Start Date End Date Kristi Gilbert FNP [address] [place] [address] PCP - General Family Medicine 05/14/22 documented as of this encounter
--- OUTSIDE RECORDS SUMMARY | 2025-05-06 10:58 | XMS_ITS | Encounter Summary ---
Author Organization [employer] Address [address] [place] [address] 7 [place] [address] Care Team Providers Care Obstetrical Anesthesiologist Name Role Phone Kristi Gilbert [facility] Primary Care Provider [phone] Encounter Details Date Type Department Care Team ([facility] st Contact Info) Description 05/05/2025 Telephone [facility] [address] [place], [place] [phone] Kristi Gilbert [facility] [address] [place] [address] Social History Tobacco Use Types Packs/Day Years [...] encounter Miscellaneous Notes * Telephone Encounter - Gege Linton - 05/05/2025 11:49 AM EST Called patient they didn't answer I left a voicemail informing them of their appointment tomorrow we were checking insurances and their insurance [employer] came back inactive if they have another insurance if they can call us back to add it and make sure its active or if they need help they can come to the second or third floor to speak to insurance enrollment. documented in this encounter Plan of Treatment Not on file documented as of this encounter Visit Diagnoses Not on filedocumented in this encounter Additional Health Concerns Assessment Noted Time PHQ-9 Depression Total Score: 0 03/14/20 23 1:58 PM EDT documented as of this encounter Care Teams Obstetrical Anesthesiologist Relationship Specialty Start Date End Date Kristi Gilbert FNP [address] [place] [address] PCP - General Family Medicine 05/14/22 documented as of this encounter
[2025-05-06 12:06] LABS: Hematocrit 43.3 % (37.0-47.0); Hemoglobin 14.1 g/dl (12.0-16.0); Imm Gran Abs Auto 0.03 X10*3/uL (0.00-0.03); Imm Gran Pct Auto 0.5 % (0.0-0.4); Lymphocytes Absolute Auto 2.5 X10*3/uL (1.2-4.9); MANUAL DIFF FLAG SCAN; Mean Corpuscular HGB Conc 32.6 g/dl (31.0-35.0); Mean Corpuscular Hemoglobin 28.9 pg (27.0-33.0); Mean Corpuscular Volume 88.7 fL (80.0-98.0); NRBC Abs Auto 0.000 X10*3/uL (0.0-0.012); NRBC Pct Auto 0.0 /100WBC (0.0-0.2); PLT CLUMP 1; Red Blood Count 4.88 X10*6/uL (4.20-5.50); SCAN SMEAR FLAG 1
[2025-05-06 12:14] LABS: Alanine Aminotransferase 40 U/L (0-31); Albumin Level 4.3 g/dL (3.5-5.0); Alkaline Phosphatase 80 U/L (39-117); Aspartate Amino Transferase 44 U/L (5-31); Total Protein 7.5 g/dL (6.5-8.0)
[2025-05-06 12:15] LABS: Platelet Count 282 X10*3/uL (160-400); White Blood Count 6.3 X10*3/uL (4.8-10.8)
== END 2025-05-06 09:47 | disposition home or self-care (01) ==
LOC: HO.HHCL 09:46
PROVIDERS: PCP Registered Nurse; Visit Provider Registered Nurse
DX: K76.0 Fatty (change of) liver, not elsewhere classified (principal)
CPT/HCPCS: 36415; 80076; 85025

== ENCOUNTER 2025-06-13 08:25 | Outpatient (AMB) | payer OTHER, SELFPAY ==
[2025-06-13 08:29] VITALS: BP 120/82; PULSE 84; O2SAT 98; BMI 24.0
--- NOTE | 2025-06-13 08:29 | MHC.OFFVIS ---
Vital Signs 06/13/25 08:29 Height 4 ft 11 in Weight 119 lb BMI 24.0 BP 120/82 Blood Pressure Location Lt brachial Position Sitting Pulse 84 Pulse Source Pulse Oximeter Pulse Oximetry (%) 98 Oxygen Delivery Method Room Air Intake Visit Reasons: ENP-DANIEL difficulty tolerating CPAP Intake Note: Patient presents PLUSH BRUSHER Insomnia/DANIEL. Difficulty staying sleep on CPAP. Patient states when moves the mask leaks and noise of machine. Allergies No Known Allergies (No Known Allergies*) Allergy (Verified 06/13/25 08:33) HPI Comments Details: 60 year old female is referred to us by her PCP, Dr. Kristi Agostoside for an evaluation of sleep apnea. Rick her helps with history taking. She was diagnosed with daniel and she does not use it because the machine is loud and she can not tolerate the noise. She has trouble falling asleep and staying asleep for years now. She tried melatonin but stopped due side effects of dizziness, and feeling groggy the next morning. She snores loudly per her bed partner. Denies gasping for air and choking. She has multiple arousals, goes to the bathroom, checks her phone and after 1-2 hours she goes back to sleep or can stay up all night baking. She is chronically fatigued the next day. She wakes up with morning headaches, denies grinding or clenching of jaw. She has acid reflux after eating large portions, acidic foods, greasy meals, managed with nicki catie. She has restless leg syndrome and takes tramadol for bilateral paresthesias in her feet and hands. She wakes up multiple times to stretch her feet. She denies anxiety and is short tempered can get upset easily. Memory is poor at baseline, she forgets daily tasks, forgets to take medication and she must write everything down. She gets lost while driving to new places, she started driving at 58 and learning new tasks is difficult for her. Her diet is stable, she eats lots of fish, walks daily, and drinks plenty of water. Denies smoking cigarettes, MJ and alcohol use. [facility] Medical History Post-COVID syndrome Dyspnea on exertion Snoring Sleep disorder, unspecified Elevated liver enzymes COVID-19 Surgical History No significant past surgical history Family History Father No problems noted. Mother No problems noted. 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 Physical Exam Vital Signs: Last Vital Signs Pulse 84 06/13/25 08:29 BP 120/82 06/13/25 08:29 Pulse Ox 98 06/13/25 08:29 Oxygen Delivery Method Room Air 06/13/25 08:29 BMI result Body Mass Index 24.0 Const General: cooperative, comfortable and no acute distress Nutritional Appearance: average body habitus Orientation/consciousness: patient oriented x3 HEENT Face and sinus: Yes face symmetric Teeth and gingiva: other (mallampti score is 3) Eyes Pupils: Equal, round and reactive pupils present Neck Neck: Yes full ROM Resp Effort & Inspection: normal respiratory effort and able to speak in complete sentences Neuro General: patient oriented x3 and moves all extremities Cranial nerves: Yes Equal, round and reactive pupils present, Yes Normal accommodation reflex present, Yes Normal facial strength present, Yes Ability to bilaterally rotate head present and Yes Ability to bilaterally elevate shoulders present Gait exam (Neuro): Normal gait present Motor exam (neuro): 5/5 motor strength present throughout and Normal motor muscle tone present throughout Deep tendon reflexes (DTR's): Right triceps reflex intensity grade: 2+, Left triceps reflex intensity grade: 2+, Rt Biceps (C5, C6): 2+, Left biceps reflex intensity grade: 2+, Right brachioradialis reflex intensity grade: 2+, Left brachioradialis reflex intensity grade: 2+, Right patellar reflex intensity grade: 2+ and Left patellar reflex intensity grade: 2+ Coordination: [id number] test normal Psych Appearance: grossly normal Mental Status: mental status grossly normal Speech and movement: Normal speech and movement present Thought process: Normal thought process present Results Reviewed Results Reviewed: labs reviewed with pt. no compliance on file Assessment & Plan Assessment & Plan (1) Excessive daytime sleepiness: Code(s): G47.19 - Other hypersomnia Category: Medical (2) RLS (restless legs syndrome): Code(s): G25.81 - Restless legs syndrome Category: Medical (3) Insomnia: Code(s): G47.00 - Insomnia, unspecified Category: Medical Qualifiers: Insomnia type: unspecified Qualified Code(s): G47.00 - Insomnia, unspecified Plan Excessive daytime sleepiness HST r/o DANIEL RLS Labs will check B12, Vit D, Ferritin, Homocysteine, TSH, and then Future start on Vitamin D and B12 1000mcg Ferritin, B12 Folate She tried Melatonin 5mg, had s/e dizziness and feeling groggy the next day. Orders: Orders Methylmalonic Acid 06/13/25 G47.19 - Other hypersomnia, G47.9 - Sleep disorder, unspecified, R53.83 - Other fatigue Vitamin B12 06/13/25 G47.19 - Other hypersomnia Vitamin D 25-OH Total 06/13/25 G47.19 - Other hypersomnia Ferritin 06/13/25 G47.19 - Other hypersomnia RT home sleep study 06/13/25 G47.19 - Other hypersomnia Homocysteine 06/13/25 G47.19 - Other hypersomnia, G47.9 - Sleep disorder, unspecified, R53.83 - Other fatigue TSH reflex Free T4 06/13/25 G47.19 - Other hypersomnia Patient Instructions: Sleep Hygiene provided: set a scheduled bedtime and wake time to help regulate the circadian rhythm and balance the release of pituitary hormones. Sleep in a dark room, temperatures below 68 degrees, and no devices n bed. Limit caffeinated products 6 hours prior to bed, and limit fluids 2-4 hours prior to bed. Gentle night yoga, diffusing essential oils, and playing soft music can be relaxing. Coding Level of Care Code New Pt Level 4 (40824) Diagnoses Excessive daytime sleepiness G47.19 RLS (restless legs syndrome) G25.81 Insomnia, unspecified type G47.00 Insomnia type: unspecified Sleep Questionnaire Difficulty falling asleep: Yes Difficulty staying asleep?: Yes Number of arousals: 3 Snoring: Yes Witnessed apneas: No Gasping arousals: No Nocturia: No GERD: Yes Vivid dreams: No Acting out dreams: No Abnormal behavior in sleep: No Abnormal movements in sleep: No Morning headaches: Yes Excessive daytime sleepiness: No Daytime naps: Yes Restless legs: Yes Hallucinations: No Sleep paralysis: No Drop attacks: No Sleep Study: Yes CPAP: Yes
--- OUTSIDE RECORDS SUMMARY | 2025-06-13 08:33 | XMS_ITS | Encounter Summary ---
Author Organization [employer] Address [address] [place] [address] [address] [place] [address] Care Team Providers Care Molecular Biologist Name Role Phone Vladimir Kristi PRINCIPAL TRAINER Primary Care Provider [phone] Encounter Details Date Type Department Care Team (Late st Contact Info) Description 09/30/2022 Telephone [facility] MEDICINE [address] [place], [place] [phone] Kristi Gilbert FNP [address] [place] [address] Social History Tobacco Use Types Packs/Day Years [...] on filedocumented in this encounter Care Teams Molecular Biologist Relationship Specialty Start Date End Date Kristi Gilbert FNP [address] [place] [address] PCP - General Family Medicine 05/14/22 documented as of this encounter
--- OUTSIDE RECORDS SUMMARY | 2025-06-13 08:33 | XMS_ITS | Encounter Summary ---
Author Organization [employer] Address [address] [place] [address] [address] [place] [address] Care Team Providers Care Major Sales Associate Name Role Phone Vladimir Kristi [facility] Primary Care Provider [phone] Reason for Visit * Reason Onset Date Comments Med Refill 04/26/2024 Encounter Details Date Type Department Care Team ([facility] st Contact Info) Description 04/26/2024 Telephone [facility] MED[facility]INE [address] [place] [address] [facility] [address] [place] [address] Med Refill Social History Tobacco Use Types [...] 80 MG tablet To be sent to: [facility] - [place], [place] - [address] [place] [address] *Pt requesting a 90 day supply* documented in this encounter Plan of Treatment Not on file documented as of this encounter Visit Diagnoses Not on filedocumented in this encounter Additional Health Concerns Assessment Noted Time PHQ-9 Depression Total Score: 0 03/14/20 23 1:58 PM EDT documented as of this encounter Care Teams Major Sales Associate Relationship Specialty Start Date End Date Kristi Gilbert FNP [address] [facility] [place] [address] PCP - General Family Medicine 05/14/22 documented as of this encounter
--- OUTSIDE RECORDS SUMMARY | 2025-06-13 08:33 | XMS_ITS | Clinical Summary ---
Author Organization [employer] Address [address] [place] [address] 7t [place] [address] Care Team Providers Care Field Trainer Name Role Phone Kristi Gilbert BELT FIXER Primary Care Provider [phone] Allergies No known active allergies Medications Alcohol Swabs (Alcohol Prep) padsIndications :Prediabetes,Sh aking [...] times daily 100 each 12 4 Active brompheniramine -pseudoephedrin e-DM 30-2-10 MG/5ML syrupIndication s:COVID-19 Take 5 mL by mouth if needed in the morning, at noon, in the evening, and at bedtime for cough. 120 mL 5 Active traMADol (Ultram) 50 MG tabletIndicatio ns:COVID-19 Take 1 tablet (50 mg) by mouth every 6 (six) hours if needed for severe pain. 12 tablet 5 Active metFORMIN XR (Glucophage-XR) 500 MG 24 hr tablet TAKE 1 TABLET BY MOUTH TWICE DAILY 180 tablet 1 5 Active atorvastatin (Lipitor) 80 MG tabletIndicatio ns:Steatosis of liver TAKE 1 TABLET BY MOUTH EVERY DAY 90 tablet 3 5 Active mirtazapine (Remeron) 7.5 MG tabletIndicatio ns:Other insomnia Take 1 tablet (7.5 mg) by mouth at bedtime. 30 tablet 1 05/06/2025 10:44 AM EST Active Active Problems Problem Noted Date Diagnosed [...] 3-5x/month for severe pain Will refer for TILE SPRAYER contract Steatosis of liver 11/19/2022 Encounters Date Type Department Care Team Description 05/11/2025 Results Follow-Up [facility] [address] [place] [address] Kristi Gilbert FNP POCT Glucose, CBC auto differential, Hepatic Function Panel 05/06/2025 9:00 AM EST Office Visit [facility] [address] [place] [address] Kristi Gilbert FNP Steatosis of liver (Primary Dx); Prediabetes; Other insomnia; Obstructive sleep apnea; Encounter for immunization 05/06/2025 Travel 05/05/2025 Telephone [facility] [address] [place] [address] Kristi Gilbert FNP 05/05/2025 Telephone [facility] [address] [facility] [address] Kristi Gilbert FNP chart prep 04/29/2025 Travel 04/25/2025 Refill [facility] [address] [place] [address] Kristi Gilbert FNP Steatosis of liver 04/17/2025 Refill [facility] [address] [place] [address] Kristi Gilbert FNP Steatosis of liver 04/04/2025 Telephone [facility] [address] [place] [address] Kristi Gilbert FNP Dec Recall 03/25/2025 Refill [facility] [address] [place] [address] Kristi Gilbert FNP from Last 3 Months Immunizations Immunization Administration [...] Screening 11/26/2025 11/26/2024 Lipid Panel 11/26/2025 11/26/2024, 0609/2023, 04/26/2022, Additional history exists SDOH Screening 11/26/2025 11/26/2024 Colorectal Cancer Screening 12/18/2025 FIT DNA/Cologuard 12/18/2025 12/18/2022, 12/10/2022 Mammogram 01/13/2026 01/13/2025, 12/21, 01/02/2023, Additional history exists Disability Screening 04/29/2026 04/29/2025 Alcohol/Substance Use Screening 05/06/2026 05/06/2025 Tobacco Screening 05/07/2026 05/07/2025 Eye Exam 07/22/2026 07/22/2024, 06/25, 07/22/2024, Additional [...] Procedure Name Priority Date/Time Associated Diagnosis Comments SLIDE REVIEW Routine 05/06/2025 9:50 AM EST HEPATIC FUNCTION PANEL Routine 9:50 AM EST Steatosis of liver CBC WITH AUTO DIFFERENTIAL Routine 05/06/2025 9:50 AM EST Steatosis of liver POCT GLUCOSE Routine 05/06/2025 8:49 AM EST [...] Recently Relevant to Health Maintenance Results * Slide Review (05/06/2025 9:50 AM EST) Slide Review VERIFIED [facility] 05/06/2025 9:50 AM EST 05/06/2025 11:16 AM EST [facility] BLOOD ORDERABLES Final Re sult [facility] [address] [place] [address] [phone] * (ABNORMAL) CBC auto differential (05/06/2025 9:50 AM EST) White Blood Count 6.3 4.8 - 10.8 X10*3/uL [facility] Red Blood Count 4.88 4.20 - 5.50 X10*6/uL [facility] Hemoglobin 14.1 12.0 - 16.0 g/dl [facility] Hematocrit 43.3 37.0 - 47.0 % [facility] Mean Corpuscular Volume 88.7 80.0 - 98.0 fL [facility] Mean Corpuscular Hemoglobin 28.9 27.0 - 33.0 pg [facility] Mean Corpuscular HGB Conc 32.6 31.0 - 35.0 g/dl [facility] Red Cell Distribution Width 13.1 11.0 - 16.0 % [facility] Platelet Count 282 160 - 400 X10*3/uL [facility] Mean Platelet Volume 9.6 9.4 - 12.3 fL [facility] Neutrophils Percent Auto 45.2 45 - 73 % [facility] Imm Gran Pct Auto 0.5(H) 0.0 - 0.4 % [facility] Lymphocytes Percent Auto 40.1(H) 20 - 40 % [facility] Monocytes Percent Auto 6.8 2 - 11 % [facility] Eosinophils Percent Auto 6.6(H) 0 - 4 % [facility] Basophils Percent Auto 0.8 0 - 2 % [facility] NRBC Pct Auto 0.0 0.0 - 0.2 /100WBC [facility] Neutrophils Absolute Auto 2.9 2.0 - 8.3 x10*3/uL [facility] Imm Gran Abs Auto 0.03 0.00 - 0.03 X10*3/uL [facility] Lymphocytes Absolute Auto 2.5 1.2 - 4.9 X10*3/uL [facility] Monocytes Absolute Auto 0.4 0.1 - 1.2 X10*3/uL [facility] Eosinophils Absolute Auto 0.4 0.0 - 0.4 X10*3/uL [facility] Basophils Absolute Auto 0.1 0.0 - 0.2 X10*3/uL [facility] NRBC Abs Auto 0.000 0.0 - 0.012 X10*3/uL [facility] Blood Venous blood specimen / Unknown 05/06/2025 9:50 AM EST 05/06/2025 11:16 AM EST [facility] BLOOD ORDERABLES Edited R esult - Final [facility] [address] [place] [address] [phone] * (ABNORMAL) Hepatic Function Panel (05/06/2025 9:50 AM EST) Bilirubin, Total 0.6 0.0 - 1.0 mg/dL [facility] Bilirubin, Direct 0.2 0.0 - 0.5 mg/dL [facility] Aspartate Amino Transferase 44(H) 5 - 31 U/L [facility] Alanine Aminotransferase 40(H) 0 - 31 U/L [facility] Total Protein 7.5 6.5 - 8.0 g/dL [facility] Albumin Level 4.3 3.5 - 5.0 g/dL [facility] Alkaline Phosphatase 80 39 - 117 U/L [facility] Blood Venous blood specimen / Unknown 05/06/2025 9:50 AM EST 05/06/2025 11:16 AM EST [facility] BELT FIXER LAB BLOOD ORDERABLES Final Re sult [facility] [address] [place] [address] [phone] * POCT Glucose (05/06/2025 8:49 AM EST) Glucose Blood, POC 167 60 - 200 mg/dL QC Media Lot # [id number] Lot# Expiration Date Blood Capillary blood specimen / Unknown 05/06/2025 8:49 AM EST [facility] BELT FIXER POINT OF CARE TEST ENTER/EDIT ORDERABLES Final Result * BI Mammogram Screening Tomosynthesis Bilateral (01/13/2025 8:00 AM EDT) Anatomical Region Laterality Modality Breast Bilateral Mammography 01/13/2025 8:00 AM EDT Narrative 01/18/2025 8:10 PM EDT [facility] [address] [place] [address] Mammography Report Signed Patient: Staci Cohen MR#: [id number] 12 : 1965 Acct:[id number] Age/Sex: 59 / F ADM Date: 01/13/25 Loc: [facility] Attending Dr: Kristi ENCISO Ordering Physician: Kristi Gilbert Results: 1Nega tive Date of Service: 01/13/25 Follow Up: 1 Year From Orig inal Mammogram Procedure(s): MM tomosynthesis screening BI Accession Number(s): [id number] cc: Kristi Gilbert BELT FIXER EXAMINATION: MM SCREENING DIGITAL BREAST TOMOSYNTHESIS, BILATERAL [...] OV> 01/18/252006 DD/ 08 TD/TT: 01/13/25 0813 Rn Lvn: Procedure Note Donotuseinterpreter, Image - 01/18/2025 [facility] [address] [place] [address] Mammography Report Signed Patient: Albert Cohen#: [id number] 12 : 1965Acct:[id number] Age/Sex: 59 / FADM Date: 01/13/25 Loc: NATALIO Attending Dr: Kristi Gilbert BELT FIXER Ordering Physician: Kristi Gilbert FNPResults: 1Nega tive Date of Service: 01/13/25Follow Up: 1 Year From Orig inal Mammogram Procedure(s): MM tomosynthesis screening BI Accession Number(s): [id number] cc: [facility] BELT FIXER EXAMINATION: MM SCREENING DIGITAL BREAST TOMOSYNTHESIS, BILATERAL [...] Reuben Mccoy MD 01/18/2025 08:07 PM EDT Workstation: [employer] Dictated By: Reuben Mccoy MD Signed By: <Electronically signed by Reuben Mccoy MD in OV> 01/18/252006 DD/ 0800 TD/TT: 01/13/25 0813 Rn Lvn: [facility] BELT FIXER IMG BI PROCEDURES Final Resul t * Albumin, Random Urine W/Creatinine (11/26/2024 10:34 AM EDT) Creatinine, Urine 65.04 mg/dL [facility] Microalbumin Urine <5.0 mg/L [facility] Microalbum Creatinine Ratio Ur TNP <30 ug/mg cr [facility] Comment:Unable to calculate albumin/creatinine ratio due to lowmicroalbumin or creatinine result. Urine 11/26/2024 10:3 4 AM EDT 11/26/2024 1:08 PM EDT [facility] URINE ORDERABLES Final Re sult Performing Organization Address City/[facility] Co de Phone Number [facility] [address] [place] [address] [phone] * HIV-1/2 Antigen and Antibodies, Fourth Generation, with Reflexes (11/26/2024 10:34 AM EDT) HIV AB/AG Nonreactive Nonreactive [facility] Comment:HIV-1 p24 Ag and/or HIV-1/HIV-2 Ab not detected.A test result that is nonreactive does not exclude thepossibility of exposure to or infection with HIV-1 and/orHIV-2. Nonreactive results in this assay for individualswith prior exposure to HIV-1 and/or HIV-2 may be due toantigen and antibody levels that are below the limit ofdetection of this assay.The [employer] HIV Ag/Ab Combo assay result andsupplemental assay results should be interpreted inconjunction with the patient's clinical presentation,history and other laboratory results. If the results areinconsistent with clinical evidence, additional testing issuggested to confirm the result. Blood Venous blood specimen / Unknown 11/26/2024 10:34 AM EDT 11/26/2024 1:17 PM EDT [facility] BLOOD ORDERABLES Final Re sult Performing Organization Address City/[facility]/ZIP Co de Phone Number [facility] [address] [place] [address] [phone] * Hemoglobin A1c (11/26/2024 10:34 AM EDT) Hemoglobin A1c 5.7 <6.0 % [facility] Comment:Hemoglobin A1C Refer ence Range Adults: 4.8 - 6.0 % Non diabetic: < 6.0 % Goal: < 7.0 %Additional Action Suggested: > 8.0 %Note: Hemoglobin A1c results are invalid for patients with abnormal amounts of HbF. Blood transfusions may impact the HbA1c concentration in the patient sample. Estimated Average Glucose 117 mg/dL [facility] Comment:eAG = Estimated ave rage glucose which is %A1C expressed asaverage glucose, using the formula of the L9Y-IqovifzDacrrnp Glucose study (ADAG), Diabetes Care, Vol.31,#8,Jan. 2007 Blood Venous blood specimen / Unknown 11/26/2024 10:34 AM EDT 11/26/2024 1:17 PM EDT [facility] BLOOD ORDERABLES Final Re sult [facility] [address] [place] [address] [phone] * (ABNORMAL) Lipid Panel, Standard (11/26/2024 10:34 AM EDT) Triglycerides 145 <150 mg/dL [facility] Comment:Desirable Triglyceri de: less than 150 mg/dLBorderline High Triglyceride 150-199 mg/dLHigh Triglyceride: 200-499 mg/dLVery High Triglyceride: greater than or equal to 5OO mg/dL Cholesterol 196 <200 mg/dL [facility] Comment:Desirable Cholestero l: less than 200 mg/dLBorderline High Cholesterol: 200-239 mg/dLHigh Cholesterol: greater than 239 mg/dL LDL Cholesterol Calculated 121(H) <100 mg/dL [facility] Comment:Desirable LDL: less than 100 mg/dLNear Optimal/Above Optimal LDL: 110- 129 mg/dLBorderline High LDL: 130-159 mg/dLHigh LDL: 160-189 mg/dLVery High LDL: greater than or equal to 190 mg/dL HDL Cholesterol 46 >40 mg/dL [facility] Comment:Desirable HDL: great er than 40 mg/dL Note: This HDL assay may give artificially low results in patients with liver disease. Blood Venous blood specimen / Unknown 11/26/2024 10:34 AM EDT 11/26/2024 1:17 PM EDT [facility] BLOOD ORDERABLES Final Re sult Performing Organization Address [facility] Co de Phone Number [facility] [address] [place] [address] [phone] * Hepatitis Panel, General (12/04/2023 8:15 AM EDT) Hepatitis A IgM Nonreactive Nonreactive [facility] Comment:IgM antibodies to SIMON V not detected; does not exclude earlyacute or recovered HAV infection. ~Hepatitis B Surface Antibody NONREACTIVE Nonreactive [facility] Comment:Nonreactive: < 8.00 mIU/mL Hepatitis B Core Antibody Nonreactive Nonreactive [facility] Hepatitis C Antibody Nonreactive Nonreactive [facility] Comment:Antibodies to HCV no t detected; does not exclude early acuteHCV infection. Hepatitis B Surface Ag Negative Negative [facility] Blood 12/04/2023 8:15 AM EDT 12/04/2023 11:41 AM EDT [facility] BLOOD ORDERABLES Final Re sult Performing Organization Address [facility] Co de Phone Number [facility] [address] [place] [address] [phone] * HPV mRNA E6/E7 w/Reflex to HPV Genotypes 16, 18/45 (03/14/2023 2:38 PM EDT) Pathologist [facility] HPV nRNA E6/E7 Not Detected Not Detected [facility] Comment:Methodology: Transcr iption-Mediated AmplificationThis assay detects E6/E7 viral messenger RNA (mRNA) from 14high-risk HPV types (16,18,31,33,35,39,45,51,52,56,58,59,66,68).Cervical sources are required for HPV testing.If a vaginal source from a patient who has had atotal hysterectomy with removal of cervix wassubmitted, please contact the testing laboratoryfor alternative testing options.For additional information, please refer tohttp://education.BCNX/faq/XWV139w7(This link if provided for information/educational purposes only.)THIS TEST WAS PERFORMED AT:[facility] [place] [id number] LI MD HPV mRNA E6/E7 TNP [facility] HPV 16 RNA TNP [facility] HPV 18/45 RNA TNP [facility] 03/14/2023 2:38 PM EDT 03/17/2023 9:30 AM EDT [facility] CYTOLOGY ORDERABLES Final Result [facility] [address] [place] [address] [phone] * Pap Smear (03/14/2023 2:38 PM EDT) 03/14/2023 2:38 PM EDT 03/17/2023 9:30 AM EDT Narrative [facility] - 03/24/2023 1:34 PM EDT ----- ------- Name: NoelStaci Age/Sex: 57/F : 1965 Unit#: [id number] Attend Dr: Kristi Gilbert [facility] Re03/14/23 Status: DEP REF Location: HO.LNP Disch: ----- ------- SPEC : [id number] RECD: 03/17/23 STATUS: ARNAV MCKEE NUM: [id number] JASON: 03/14/[address] [facility] DR: Kristi Gilbert [facility] ENTERED: 03/17/23 SP TYPE: Pap Smr OTHR DR: ORDERED: Pap Smear Interpretation Satisfactory for evaluation. Mild inflammation. Negative for intraepithelial lesion or malignancy. HPV mRNA E6/E7: NOT DETECTED This assay detects E6/E7 viral messenger RNA (mRNA) from 14 high-risk HPV types (16, 18, 31, 33, 35, 39, 45, 51, 52, 56, 58, 59, 66, 68) HPV testing performed by [employer], [place], [place]. See reference laboratory pion of the EMR for entire report. Clinical Information LMP: Postmenopausal Previous PAP test: Unknown date/findings Material Received ThinPrep-Cervical ----- ------- Signed (signature on file) ISRA Allen (ASCP) 03/24/23 1334 ----- ------- END OF REPORT [facility] CYTOLOGY ORDERABLES Final Result [facility] [address] [place] [phone] * Cologuard?? colon cancer screening (12/18/2022) [...] [address] [place] Care Teams Field Trainer Relationship Specialty Start Date End Date Kristi Gilbert FNP [address] [place] [address] [place] PCP - General Family Medicine 05/14/22
--- OUTSIDE RECORDS SUMMARY | 2025-06-13 08:33 | XMS_ITS | Encounter Summary ---
Author Organization [employer] Address [address] [place] [address] 7 [place] [address] Care Team Providers Care Cattle Shipper Name Role Phone Vladimir [facility] Primary Care Provider [phone] Reason for Visit * Reason Onset Date Comments Med Refill 04/25/2025 Encounter Details Date Type Department Care Team ([facility] st Contact Info) Description 04/25/2025 Refill [facility] [address] [place] [address] [facility] [address] [place] [address] Steatosis of liver Social History Tobacco Use [...] documented as of this encounter Care Teams Cattle Shipper Relationship Specialty Start Date End Date Kristi Gilbert FNP [address] [place] [phone] PCP - General Family Medicine 05/14/22 documented as of this encounter
--- OUTSIDE RECORDS SUMMARY | 2025-06-13 08:34 | XMS_ITS | Encounter Summary ---
Author Organization [employer] Address [address] [place] [address] 7 [place] [address] Care Team Providers Care Core Winder Machine Operator Name Role Phone Vladimir [facility] Primary Care Provider [phone] Reason for Visit * Reason Onset Date Comments Med Refill 04/27/2024 Encounter Details Date Type Department Care Team ([facility] st Contact Info) Description 04/27/2024 Refill [facility] [address] [place] [address] [facility] [address] [place] [address] Steatosis of liver Social History Tobacco Use [...] documented as of this encounter Care Teams Core Winder Machine Operator Relationship Specialty Start Date End Date Kristi Gilbert FNP [address] [place] [phone] PCP - General Family Medicine 05/14/22 documented as of this encounter
--- OUTSIDE RECORDS SUMMARY | 2025-06-13 08:34 | XMS_ITS | Encounter Summary ---
Author Organization [employer] Address [address] [place] [address] 7 [place] [address] Care Team Providers Care Furniture Painter Name Role Phone Kristi Gilbert ZARIA Primary Care Provider [phone] Reason for Visit * Reason Onset Date Comments Med Refill 09/20/2024 Encounter Details Date Type Department Care Team ([facility] st Contact Info) Description 09/20/2024 Refill [facility] [address] [place] [address] Joan Gardner MD [address] [place] [address] Social History Tobacco Use Types Packs/Day Years [...] documented as of this encounter Care Teams Furniture Painter Relationship Specialty Start Date End Date Kristi Gilbert FNP [address] [place] [phone] PCP - General Family Medicine 05/14/22 documented as of this encounter
--- OUTSIDE RECORDS SUMMARY | 2025-06-13 08:34 | XMS_ITS | Encounter Summary ---
Author Organization [employer] Address [address] [place] [address] 7 [place] [address] Care Team Providers Care Peoplesoft Fscm Developer Name Role Phone Vladimir [facility] Primary Care Provider [phone] Reason for Visit * Reason Onset Date Comments Med Refill 03/25/2025 Encounter Details Date Type Department Care Team ([facility] st Contact Info) Description 03/25/2025 Refill [facility] [address] [place] [address] [place] [facility] [address] [place] [address] Social History Tobacco Use Types Packs/Day Years [...] documented as of this encounter Care Teams Peoplesoft Fscm Developer Relationship Specialty Start Date End Date Kristi Gilbert FNP [address] [place] [address] PCP - General Family Medicine 05/14/22 documented as of this encounter
--- OUTSIDE RECORDS SUMMARY | 2025-06-13 08:34 | XMS_ITS | Encounter Summary ---
Author Organization [employer] Address [address] [place] [address] [address] [place] [address] Care Team Providers Care Press Brake Operator Name Role Phone Vladimir [facility] Primary Care Provider [phone] Reason for Visit * Reason Comments Med Refill Encounter Details Date Type Department Care Team ([facility] st Contact Info) Description 03/07/2025 Refill [facility] [address] [place], [place] [phone] [place] [facility] [address] [place] [address] Viral upper respiratory tract infection Social History [...] documented as of this encounter Care Teams Press Brake Operator Relationship Specialty Start Date End Date Kristi Gilbert FNP [address] [place] [address] PCP - General Family Medicine 05/14/22 documented as of this encounter
== END 2025-06-13 09:24 | disposition home or self-care (01) ==
PROVIDERS: PCP Registered Nurse; Visit Provider Physician Assistant Medical
DX: G47.19 Other hypersomnia (principal); G25.81 Restless legs syndrome; G47.00 Insomnia, unspecified
CPT/HCPCS: 99204

== ENCOUNTER → 2025-06-13 08:25 | Outpatient (BNVA) | payer SELFPAY | PROVIDERS: PCP Registered Nurse; Visit Provider Physician Assistant Medical | DX: G47.19 Other hypersomnia (principal); G47.00 Insomnia, unspecified; G25.81 Restless legs syndrome; R53.83 Other fatigue; Z99.89 Dependence on other enabling machines and devices; Z71.89 Other specified counseling | CPT/HCPCS: 99202 ==